=== PATIENT | female | born 1945 | race Caucasian/White ===

== ENCOUNTER 2023-06-10 22:38 | Inpatient (IN) | payer MEDICARE, BC, SELFPAY ==
--- NOTE | 2023-06-10 18:03 | NURSING ---
recieved updated report from Meg LIEBERMAN at [facility] ER. report included troponin now resulted back as elevated as 168 states their normal goes up to 59. also states that pt would require her 3hr liset next troponin draw at 8pm at time of transport vegetable picker and would have to be sent out so wouldn't be resulted before left. Dr. Muniz updated on new findings and states pt will be admitted to PCU and will need state troponin on admission. Senior Care Manager Kirk called and updated. Report as given by Meg called to PCU charge Nurse. PCU charge nurse given ER phone number to call with updated bed assignment.
--- OUTSIDE RECORDS SUMMARY | 2023-06-10 21:34 | XMS RPT_ITS | CCD ---
Author Name Unknown Address [address] [place] [address] Organization [facility] Care Team Providers Care Outside Sales Account Manager Name Role Phone MARIE, KIMO M Unavailable Unavailable MARIE, KIMO M Unavailable Unavailable Asbridge, Nyla Unavailable Unavailable Asbridge, Nyla Unavailable Unavailable No Doctor Assigned, Nodr Unavailable Unavail able MARIE, KIMO M Unavailable Unavailable MARIE, KIMO M Unavailable Unavailable ASHLEY BRANDT Unavailable Unavailable ASHLEY BRANDT Unavailable Unavailable ASHLEY BRANDT Unavailable Unavailable BRANDTASHLEY Unavailable Unavailable MARIE, KIMO M Unavailable Unavailable MARIE, KIMO M Unavailable Unavailable ASHLEY BRANDT Unavailable Unavailable ASHLEY BRANDT Unavailable Unavailable ASHLEY BRANDT Unavailable Unavailable ASHLEY BRANDT Unavailable Unavailable KRANYAK, HEMANTH Unavailable Unavailable KRANYAK, HEMANTH Unavailable Unavailable KRANYAK, HEMANTH Unavailable Unavailable KRANYAK, HEMANTH Unavailable Unavailable MARIE, KIMO M Unavailable Unavailable MARIE, KIMO M Unavailable Unavailable KRANYAK, HEMANTH Unavailable Unavailable MARIE, KIMO M Unavailable Unavailable MARIE, KIMO M Unavailable Unavailable MARIE, KIMO M Unavailable Unavailable MARIE, KIMO M Unavailable Unavailable MARIE, KIMO M Unavailable Unavailable MARIE, KIMO M Unavailable Unavailable MARIE, KIMO M Unavailable Unavailable MARIE, KIMO M Unavailable Unavailable MARIE, KIMO M Unavailable Unavailable MARIE, KIMO M Unavailable Unavailable MARIE, KIMO M Unavailable Unavailable MARIE, KIMO M Unavailable Unavailable MARIE, KIMO M Unavailable Unavailable MARIE, KIMO M Unavailable Unavailable MARIE, KIMO M Unavailable Unavailable GRETCHEN, HAMED Unavailable Unavailable GRETCHEN, HAMED Unavailable Unavailable MARIE, KIMO M Unavailable Unavailable MARIE, KIMO M Unavailable Unavailable MARIE, KIMO M Unavailable Unavailable MARIE, KIMO M Unavailable Unavailable MARIE, KIMO M Unavailable Unavailable MARIE, KIMO M Unavailable Unavailable ASHLEY ISLAS Unavailable Unavailable ASHLEY ISLAS Unavailable Unavailable ASHLEY BRANDT Unavailable Unavailable ASHLEY BRANDT Unavailable Unavailable EDI BANG Attending Unavailab SYSTEM, PROVIDER NOT IN Primary Care Unavaila ble Allergies Allergy Classification Reported Allergen(s) Allergy Type Date of Onset Reaction(s) Facility (1 source) No Known Medication Allergies; Translations: [No Known Medication Allergies] Propensity to adverse reactions to drug (disorder) [facility] Repository Problems Active Problems Problem Classification Problem Date Documented Date Episodic/Chronic Cancer of breast (1 source) Malignant neoplasm of upper-outer quadrant of left female breast; Translations: [Malignant neoplasm of upper-outer quadrant of left female breast] Onset: 12-29-2016 Chronic Cancer of colon (1 source) Malignant neoplasm of ascending colon; Translations: [Malignant neoplasm of ascending colon] Onset: 04-25-2014 Chronic Maintenance chemotherapy; radiotherapy (1 source) Encounter for antineoplastic immunotherapy; Translations: [Encounter for antineoplastic immunotherapy] Onset: 06-07-2017 Chronic Other lower respiratory disease (2 sources) Hypoxemia; Translations: [Hypoxemia] Onset: 06-10-2023 Episodic Pneumonia (except that caused by tuberculosis or sexually transmitted disease) (2 sources) Pneumonia, unspecified organism; Translations: [Pneumonia, unspecified organism] Onset: 06-10-2023 Episodic Unclassified (2 sources) Other specified abnormal findings of blood chemistry; Translations: [Encounter for screening for osteoporosis] Onset: 04-24-2017 Episodic Unclassified (1 source) Pain, unspecified; Translations: [Pain, unspecified] Onset: 09-04-2017 Unclassified (1 source) Unknown / UNK(Unknown) Onset: 07-20-2017 Past or Other Problems Problem Classification Problem Date Documented Da te Episodic/Chronic Unclassified (1 source) Estrogen receptor positive status [ER+]; Translations: [Estrogen receptor positive status (ER+)] Onset: 12-29-2016 Episodic Results Test Name Value Interpretation Reference Range Facil ity Encounters Encounter Date Encounter Type Care Provider Facility Start: 06-10-2023 End: 06-10-2023 Emergency department patient visit EDI LOPEZ BANG [facility] Start: 02-05-2018 End: 02-06-2018 Patient encounter KIMO Bowden [facility] Start: 01-17-2018 End: 01-17-2018 Emergency department patient visit Nyla Meade Facility:[facility] Start: 01-17-2018 Patient encounter Maye [id number] Start: 01-07-2018 End: 01-07-2018 Patient encounter KIMO Bowden [facility] Start: 12-14-2017 End: 12-14-2017 Patient encounter KIMO Bowden [facility] Start: 11-23-2017 Patient encounter KIMO Bowden [facility] Start: 11-06-2017 [facility] Start: 11-02-2017 Patient encounter KIMO Bowden [facility] Start: 10-26-2017 End: 10-26-2017 [facility]: 09-28-2017 Patient encounter ASHLEY Nevarez [facility] Start: 09-24-2017 Patient encounter ASHLEY Nevarez [facility] Start: 09-21-2017 Patient encounter MARVIN Dennise [facility] Start: 09-04-2017 End: 09-05-2017 Evaluation and management of inpatient ASHLEY C [facility] Start: 08-20-2017 End: 09-16-2017 Patient encounter ASHLEY Nevarez [facility] Start: 07-20-2017 End: 08-16-[address] [facility] Start: 06-25-2017 End: 07-19-2017 Patient encounter ASHLEY Nevarez [facility] Start: 06-07-2017 Patient encounter ASHLEY ISLAS [facility] Start: 05-18-2017 End: 06-18-2017 Patient encounter KIMO Bowden [facility] Start: 04-26-2017 End: 05-18-2017 Patient encounter KIMO Bowden [facility] Start: 04-24-2017 Ambulatory [facility]IMO [facility] Start: 03-20-2017 End: 04-18-2017 [facility] 02-22-2017 End: 03-18-2017 Patient encounter ZULEIMA GODINEZ [facility] Start: 02-21-2017 End: 03-18-2017 Patient [address] [facility] Payers Date Payer Category Payer Medicare [id number] 2018 Medicare 2003 Unknown [id number] 1945 Unknown [id number] 1945 Unknown [id number] Medicare [id number] Progress note 11-11-2020 Note Date & Type Note Facility 11-11-2020 Note HNO ID: [id number] Author: Gladis Bar MA Service: ? Author Type: [employer] Farm[employer] Type: Progress Notes Filed: 11/11/2020 11:46 AM Note Text: POPULATION HEALTH NAVIGATION OUTREACH Action/FYI ACO Care Gap 1 Attempted to contact patient on 11/11/2020 Result: left message on patient's voicemail asking patient to return my call - assist an scheduling future annual wellness/follow up hypertension appointment with Ashley Islas MD - inquire if patient has advance directives - assist with MyChart activation Updated Health Maintenance - colonoscopy surveillance recommended 3 years per colonoscopy report not 1 year Contact made with patient or family member? NO Pt identified by name and : NO Outreach Outcome/Action Unable to reach patient: Left message Reason for Outreach Care Gap or Scheduling/Wellness visits Payer: Payor: MEDICARE / Plan: MEDICARE A AND B / Product Type: Medicare / Care Gap Reviewed:: Annual Wellness visit Controlling Blood Pressure Reminder: Reminder note to check Health Maintenance for items below Health Maintenance items due: COVID-19 VACCINE(1) Never done HEPATITIS C SCREENING Never done SHINGRIX VACCINE(1 of 2) Never done ADVANCE DIRECTIVE DISCUSSION Never done DEPRESSION SCREENING due on 04/04/2017 ANNUAL PCP TEAM CHRONIC DISEASE VISIT due on 05/20/2020 BP CONTROLLED (<130/80) due on 05/20/2020 Advanced Directives Completed: Have you ever planned for future healthcare decisions with a power of pipe layer helper, living will, or advance directives? N/A Referrals: N/A Message Sent to Practice: NO Navigation Signature: Gladis Bar MA November 11, 2020 11:43 AM [facility] Progress note 11-10-2020 Note Date & Type Note Facility 11-10-2020 Note HNO ID: [id number] Author: Gladis Bar MA Service: ? 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 NO Pt identified by name and : NO Outreach Outcome/Action Unable to reach patient: Left message Reason for Outreach Care Gap or Scheduling/Wellness visits Payer: Payor: MEDICARE / Plan: MEDICARE A AND B / Product Type: Medicare / Care Gap Reviewed:: Annual Wellness visit Controlling Blood Pressure Colorectal Cancer Screening Reminder: Reminder note to check Health Maintenance for items below Health Maintenance items due: COVID-19 VACCINE(1) Never done HEPATITIS C SCREENING Never done SHINGRIX VACCINE(1 of 2) Never done ADVANCE DIRECTIVE DISCUSSION Never done DEPRESSION SCREENING due on 04/04/2017 COLORECTAL CANCER SCREENING due on 08/05/2019 ANNUAL PCP TEAM CHRONIC DISEASE VISIT due on 05/20/2020 BP CONTROLLED (<130/80) due on 05/20/2020 Advanced Directives Completed: Have you ever planned for future healthcare decisions with a power of pipe layer helper, living will, or advance directives? N/A Referrals: N/A Message Sent to Practice: NO Navigation Signature: Gladis Bar MA November 10, 2020 12:47 PM [facility] Clinical Note 11-10-2020 Note Date & Type Note Facility 11-10-2020 Note Patient Outreach (AM BC) TRE ROJAS ([id number]) 1945 F Date Time Provider Department 11/10/20 GLADIS BAR During your visit today, we recorded the following information about you: Gladis Bar MA 11/11/2020 11:46 AM Signed POPULATION HEALTH NAVIGATION OUTREACH Action/FYI ACO Care Gap 1 Attempted to contact patient on 11/10/2020 Result: left message with spouse asking patient to return my call - assist an scheduling future annual wellness/follow up hypertension appointment with Ashley Islas MD - inquire if patient has advance directives - assist with MyChart activation Updated Health Maintenance - colonoscopy surveillance recommended 3 years per colonoscopy report not 1 year Contact made with patient or family member? NO Pt identified by name and : NO Outreach Outcome/Action Unable to reach patient: Left message Reason for Outreach Care Gap or Scheduling/Wellness visits Payer: Payor: MEDICARE / Plan: MEDICARE A AND B / Product Type: Medicare / Care Gap Reviewed:: Annual Wellness visit Controlling Blood Pressure Colorectal Cancer Screening Reminder: Reminder note to check Health Maintenance for items below Health Maintenance items due: COVID-19 VACCINE(1) Never done HEPATITIS C SCREENING Never done SHINGRIX VACCINE(1 of 2) Never done ADVANCE DIRECTIVE DISCUSSION Never done DEPRESSION SCREENING due on 04/04/2017 COLORECTAL CANCER SCREENING due on 08/05/2019 ANNUAL PCP TEAM CHRONIC DISEASE VISIT due on 05/20/2020 BP CONTROLLED (<130/80) due on 05/20/2020 Advanced Directives Completed: Have you ever planned for future healthcare decisions with a power of pipe layer helper, living will, or advance directives? N/A Referrals: N/A Message Sent to Practice: NO Navigation Signature: Gladis Bar MA November 10, 2020 12:47 PM Gladis Bar MA 11/11/2020 11:46 AM Signed POPULATION HEALTH NAVIGATION OUTREACH Action/FYI ACO Care Gap 1 Attempted to contact patient on 11/11/2020 Result: left message on patient's voicemail asking patient to return my call - assist an scheduling future annual wellness/follow up hypertension appointment with Ashley Islas MD - inquire if patient has advance directives - assist with MyChart activation Updated Health Maintenance - colonoscopy surveillance recommended 3 years per colonoscopy report not 1 year Contact made with patient or family member? NO Pt identified by name and : NO Outreach Outcome/Action Unable to reach patient: Left message Reason for Outreach Care Gap or Scheduling/Wellness visits Payer: Payor: MEDICARE / Plan: MEDICARE A AND B / Product Type: Medicare / Care Gap Reviewed:: Annual Wellness visit Controlling Blood Pressure Reminder: Reminder note to check Health Maintenance for items below Health Maintenance items due: COVID-19 VACCINE(1) Never done HEPATITIS C SCREENING Never done SHINGRIX VACCINE(1 of 2) Never done ADVANCE DIRECTIVE DISCUSSION Never done DEPRESSION SCREENING due on 04/04/2017 ANNUAL PCP TEAM CHRONIC DISEASE VISIT due on 05/20/2020 BP CONTROLLED (<130/80) due on 05/20/2020 Advanced Directives Completed: Have you ever planned for future healthcare decisions with a power of pipe layer helper, living will, or advance directives? N/A Referrals: N/A Message Sent to Practice: NO Navigation Signature: Gladis Bar MA November 11, 2020 11:43 AM Allergies As of Date: 11/10/2020 (No Known Allergies) Date Reviewed: 03/16/2020 Reviewed by: Gladis Betancourt Ma - Fully Assessed Reason for Visit: Population Health Navigation Outreach [3910] Cmt: ACO Care Gap 1 Prescriptions as of 11/10/2020 Sig: AMLODIPINE 5 MG TABLET Take 1 tablet by mouth once d* KETOROLAC 0.5 % EYE DROPS Use 1 Drop in both eyes four * PREDNISOLONE ACETATE 1 % EYE * Use 1 Drop in the left eye fo* Patient not taking: Reported on 03/14/2019 PREDNISOLONE ACETATE 1 % EYE * Use 1 Drop in the right eye f* Patient not taking: Reported on 03/14/2019 ASPIRIN 81 MG TABLET,DELAYED * Take 81 mg by mouth once lin[place]* ASCORBIC ACID (VITAMIN C) ORA* Take by mouth. VITAMIN D3 ORAL Take by mouth. ACETAMINOPHEN 500 MG TABLET Take 1-2 tablets by mouth daily* Patient not taking: Reported on 11/22/2018 Problem List As Of Date 11/10/2020 Noted Resolved ACTINIC KERATOSIS [L57.0] 07/15/2004 SEBORRHEIC KERATOSIS INFLAMED [L82.0] 07/15/2004 Hypertrophic and atrophic condition of skin [L9*05/15/2006 Colon cancer, ascending (HCC) [C18.2] 04/24/2014 Primary colon cancer (HCC) [C18.9] 06/15/2015 Essential hypertension [I10] 10/06/2016 Morbid obesity (HCC) [E66.01] 10/06/2016 Mammogram abnormal [R92.8] 12/22/2016 Abnormal ultrasound of breast [R92.8] 12/22/2016 Lump or mass in breast [N63.0] 12/22/2016 05/20/2019 Lymphadenopathy [R59.1] 12/22/2016 05/20/2019 Malignant neoplasm of upper-outer quadrant of (more content not included)... [facility] Summary Purpose Family History No Family History Records FoundNo Family History Records FoundNo Family History Records FoundNo Family History Records FoundNo Family History Records FoundNo Family History Records Found Advance Directives No Advanced Directives Records FoundNo Advanced Directives Records FoundNo Advanced Directives Records FoundNo Advanced Directives Records FoundNo Advanced Directives Records FoundNo Advanced Directives Records Found Additional Source Comments INFORMATION SOURCE (unrecogn ized section and content) DATE CREATED AUTHOR AUTHOR'S ORGANIZ ATION 01/28/2018 [facility] DATE CREATED AUTHOR AUTHOR'S ORGANIZ ATION 02/11/2018 [facility] DATE CREATED AUTHOR AUTHOR'S ORGANIZ ATION 05/13/2018 [facility] DATE CREATED AUTHOR AUTHOR'S ORGANIZ ATION 08/13/2021 [facility] DATE CREATED AUTHOR AUTHOR'S ORGANIZ ATION 06/10/2023 [facility] FOR RECORDS PERTAINING TO PATIENTS WHO ARE OR HAVE BEEN ENROLLED IN A CHEMICAL DEPENDENCY/SUBSTANCEABUSE PROGRAM, SOME INFORMATION MAY BE OMITTED. This clinical summary was aggregated from multiple sources. Caution should be exercised in using it in the provision of clinical care. This summary normalizes information from multiple sources, and as a consequence, information in this document may materially change the coding, format and clinical context of patient data. In addition, data may be omitted in some cases. CLINICAL DECISIONS SHOULD BE BASED ON THE PRIMARY CLINICAL RECORDS. [facility] [employer] [facility]. provides no warranty or guarantee of the accuracy or completeness of information in this document.
[2023-06-10 21:52] VITALS: BMI 32.5
[2023-06-10 22:26] VITALS: BP 140/82; PULSE 97; RESP 18; TEMP 36.8; O2SAT 98
[2023-06-10 22:27] VITALS: BP 140/82; PULSE 97; RESP 18; TEMP 36.8; O2SAT 98
--- NOTE | 2023-06-10 22:34 | HP.PCM.HOS_ITS ---
[facility] - General General Date of Admission: 06/10/23 Date of Service: 06/10/23 Chief Complaint: Shortness of breath and cough with Severe LUE Swelling HPI Narrative TRE ROJAS, is a 78 F with a past medical history of obesity; with BMI of 3 2.5 this admission, history of breast cancer; s/p left lumpectomy, history of colon cancer; s/p resection, and a history of deliberately avoiding medical attention for years and osteoarthritis transferred from [place] [facility] for cough and shortness of breath, cough and severe LUE swelling. The patient reports her symptoms began approximately 8 weeks prior to admission with a gradual onset of dyspnea on exertion and occasional cough that became productive of yellow-green sputum along with generalized weakness. Her family, particularly her sons, or deeply concerned about her health status but she refused to be evaluated at that time as she takes no pharmaceutical medications only vitamins and minerals. Her symptoms continue to progress with patient noted to have an oxygen saturation of approximately 88% at [place] [facility] with x-ray evidence of a left lower lobe infiltrate consistent with suspected community-acquired pneumonia. COVID-19 testing at the previous facility was n egative with a BNP of 88.9 pg/mL and a lactate of 1.9 mmol/L and she received Levaquin 750 mg IV once plus a breathing treatment according to the transfer records. After she arrived here at this hospital she was noted to have massive 4+ swelling of her left upper extremity with a D-dimer of 10.97 consistent with a DVT until proven otherwise with a review of her records not revealing any treatment for this issue and she personally denies a history of lymphedema and she states they did not take her lymph nodes when she was treated for breast cancer. She was also incidentally noted to have an elevated troponin of 168 pg/mL present on admission consistent with a suspected non-STEMI type II though she did not complain of chest pain, chest pressure or palpitations. She was then accepted for transfer to [facility] for further supportive care and ongoing treatment. She denies associated fever, chills, nausea vomiting or diaphoresis. She was then admitted to the PCU for ongoing care for stay that is expected to be greater than 48 hours. [facility] Home Medications cholecalciferol (vitamin D3) 125 mcg (5,000 unit) tablet (Vitamin D3) 5,000 unit PO DAILY 06/10/23 [History Last Taken Unknown] Allergy/AdvReac Type Severity Reaction Status Date / Time No Known Allergies Allergy Verified 06/10/23 22:02 Social History Smoking Status: Never smoker ROS ROS Narrative Review of systems: Constitutional: Patient is to fever but denies chills.. Eyes: Patient denies visual changes or discharge from eyes. ENT: Patient denies ear pain, runny nose or sore throat. Cardiovascular: Patient denies chest pain or palpitations. Respiratory: Patient admits to shortness of breath and cough. Abdomen: Patient denies nausea, vomiting or abdominal pain. Genitourinary: Patient denies hematuria, dysuria or urinary frequency. Neurology: Patient denies headache, dizziness or focal neurologic deficits. Musculoskeletal: Patient admits to massive swelling in her left arm with swellin g in her hand so severe she cannot get off her wedding ring. Hematologic: Patient denies easy bleeding or easy bruisability. Allergic: Patient denies lip swelling, tongue swelling or urticaria. Skin: Patient denies rash or skin discoloration. 14 point review of systems otherwise negative save for positives noted above in HPI. Vital Signs Vital Signs Vital Signs: 06/10/23 22:26 Temperature 98.3 F Temperature Source Oral Pulse Rate 97 Respiratory Rate 18 Blood Pressure 140/82 H Blood Pressure Mean 101 Blood Pressure Source Monitor Blood Pressure Position Semi-Fowlers Blood Pressure Location Right Arm Pulse Ox 98 Oxygen Delivery Method Nasal Cannula Oxygen Flow Rate (L/min) 4 Weight Weight: 213 lb 13.574 oz Body Mass Index (BMI) 32.5 Physical Exam Const alert, oriented x3, no apparent distress and average body habitus General Appearance: cooperative HEENT normocephalic, head/scalp atraumatic, hearing grossly normal bilaterally and moist oral mucous membranes Eyes PERRL and EOMs intact bilaterally Neck no lymphadenopathy and supple Resp Resp Narrative: Decreased breath sounds over LLL. Cardio regular rate and regular rhythm GI normal to inspection, nondistended, normoactive bowel sounds, soft to palpation, non-tender and non-distended Extremity Extremity Narrative: Severe 4+ LUE swelling of the entire arm with her digits still swollen that she cannot get off her wedding ring. Patient has no redness, pain or discoloration of her lower extremities. Skin Skin Narrative: Patient has no evidence of rash at this time. Neuro oriented x3, CN's II-XII intact bilaterally, moves all extremities and no focal motor deficits Sensorium / Orientation: awake, alert, oriented to person, oriented to place and oriented to time Speech: speech normal Motor Exam: strength 5/5 throughout Psych affect normal Results Medical Records Data Attestation: I reviewed the patient's medical records Lab / Micro Data Attestation: I reviewed the patient's lab results. Lab results narrative: [facility] Imaging Services [address] [place] [address] CTA Chest W/WO Contrast MR#: [id number] Acct: [id number] Name: TRE ROJAS Rep #: [id number] : 1945 F 78 From: Mike Hand MD PCP: Care Physician,No Primary Status: ADM IN Study: CTA Chest W/WO Contrast Date of Exam: 06/11/23 Exam# [id number] Ordering Dr: Guevara Adamson DO EXAM: CT ANGIOGRAPHY CHEST WITHOUT AND WITH INTRAVENOUS CONTRAST CLINICAL INDICATION: rule out PE TECHNIQUE: Helically acquired angiography images were obtained of the chest as per pulmonary angiogram protocol without and with intravenous contrast. This CT exam was performed using one or more of the following dose reduction techniques: automated exposure control, adjustment of the mA and/or kV according to patient size, and/or use of iterative reconstruction technique. MIP reconstructed images were created and reviewed. CONTRAST: IV 100mL Isovue-370 RADIATION DOSE: Total DLP: 488.05 mGy-cm. COMPARISON: No relevant prior studies available. FINDINGS: PULMONARY ARTERIES: Unremarkable. Normal in caliber. No pulmonary embolism. AORTA: Unremarkable. Normal in caliber. No evidence of dissection. GREAT VESSELS OF AORTIC ARCH: Unremarkable. Normal in caliber. No evidence of dissection. INFRAHYOID NECK: 8 x 3 x 11 mm circumscribed sessile polypoid density along the right posterolateral wall of the trachea at the level of the thoracic inlet. LUNGS AND PLEURAL SPACES: There is a large left pleural effusion with compressive atelectasis within the left lower lobe. Focal wedge-shaped area of consolidation noted within the medial aspect of the lingula, due to atelectasis and probable pneumonia. Mainstem bronchi are widely patent. Atelectasis or scarring noted within the left upper lobe abutting the mediastinum. Minimal right pleural effusion with right basilar atelectasis. No mass. No pulmonary interstitial thickening. Peribronchial cuffing noted on the left indicating bronchial wall inflammation. HEART: Minimal coronary artery calcification is present. Minimal pericardial effusion. MEDIASTINUM: No hilar or mediastinal adenopathy. THYROID: Enlarged right thyroid lobe contains multiple nodules, including a 12 mm lobulated ring-enhancing nodule with a hypodense center; this nodule requires no follow-up. BONES/JOINTS: Lower cervical degenerative disc disease. Extensive thoracolumbar degenerative changes. No acute fracture is identified. No suspicious lytic or blastic abnormality. Asymmetric fat stranding noted within the left supraclavicular fossa, with asymmetric enlargement of the muscles of the left lower neck and overlying skin thickening due to edema versus scarring. No focal ring-enhancing fluid collection is seen in this area. INTRAPERITONEAL SPACE: Liver demonstrates fatty infiltration. Hepatic parenchyma is inhomogeneous, felt to be artifactual. Visualized spleen is unremarkable. Visualized pancreatic tail is atrophic. No adrenal mass is noted. No pneumoperitoneum is seen. CT/CTA Chest W/WO Contrast IMPRESSION: Negative for PE. No thoracic aortic dissection. Large left pleural effusion with compressive atelectasis in the left lower lobe. Atelectasis and probable pneumonia within the medial aspect of the left upper lobe. Electronically Signed: Mike Hand MD at 4:41 EST , CC: Dr. Guevara Adamson, DO; No Primary Care Physician ~ Rap Artist: Signed 06/11/23 01:38 06/11/23 01:38 Assessment & Plan Assessment/Plan (1) Non-STEMI (non-ST elevated myocardial infarction): (2) Pneumonia: QUALIFIERS: Laterality: left Lung location: lower lobe of lung Pneumonia type: due to unspecified organism Qualified Code(s): J18.9 - Pneumonia, unspecified organism (3) Left arm swelling: PLAN: Plan 1. LLL Pneumonia with Large Left Pleural Effusion on CT with Acute Hypoxic Respiratory Insufficiency - Admit to PCU. Start broad-spectrum antibiotics and await culture and sensitivity data. Give Mucinex to help thin and mobilize secretions. Give Tylenol prn for mild to moderate level 1-5 out of 10 pain or fever. Give morphine IV as needed for severe level 6-10 out of 10 pain. PT/INR pending. Finally, we will consult the beauty culturist apprentice addiction professional to this patient on- rounds in the AM for further recommendations regarding possible thoracentesis. 2. Severe LUE Swelling with Critical d-dimer of 10.97 consistent with suspected DVT until proven otherwise complicating #1 - Start full-dose Lovenox and await left upper extremity Doppler ultrasound in the a.m. to confirm suspicion. Finally, for the sake of completeness we will check lower extremity Doppler to confirm no DVT. CTA of chest negative for PE. 3. Elevated troponin of 148 pg/mL present on admission likely due to acute strain/non-STEMI type II arising from #1 & #2 - Give aspirin, Plavix, statin and full dose Lovenox. Serialize troponin. BNP pending. Check echocardiogram to evaluate left ventricular ejection fraction. Finally, we will consult the cargo bracer on-call to see this patient on rounds in the a.m. for further recommendations regarding left heart cath with help appreciated in advance. 4. Obesity; with BMI of 32.5 this admission - Weight loss will be recommended. Check TSH. 5. History of breast cancer; s/p Left lumpectomy - Apparently stable. 6. History of colon cancer; s/p resection - Noted. 7. DVT prophylaxis - Patient on full-dose Lovenox for #2. Total time: Proximately 55 minutes. Charges/Coding Visit Charges Inpatient E&M: 23191 Init Hosp L2
--- NOTE | 2023-06-10 22:46 | ECHOCS_ITS ---
Reason For Study: S/P [place] Procedure This was a 2D Doppler, Color Flow transthoracic echocardiogram. The study was technically difficult. D/T BODY HABITUS. Contrast injection was performed. Exam performed portable in patient room. Left Ventricle Normal LV size. Mild concentric left ventricular hypertrophy. Left ventricular systolic function is normal. The estimated ejection fraction is 60 %. Stage 1 diastolic dysfunction. Right Ventricle Normal RV size. Normal systolic function. Atria The left and right atria are normal. Mitral Valve Mild mitral annular calcification. Trivial mitral valve insufficiency. Tricuspid Valve Normal tricuspid valve. Trivial tricuspid valve insufficiency. Right ventricular systolic pressure estimated to be 44 mmHg. Aortic Valve Trisinus/trileaflet aortic valve. Mild focal aortic valve calcification. Aortic sclerosis, no stenosis. Pulmonic Valve The pulmonic valve is not well visualized. Great Vessels Normal aortic root. Pericardium/Pleural No pericardial effusion. Medication Diluted definity 2.5ml given slow IV push to enhance endocardial definition. MMode/2D Measurements & Calculations LVIDd: 4.3 cm IVSd: 1.1 cm Ao root diam: 2.7 cm LVIDs: 3.2 cm LVPWd: 1.2 cm RVDd: 3.9 cm FS: 26.1 % LAV(MOD-bp): 44.2 ml LVAd ap4: 18.3 cm2 LVAd ap2: 13.2 cm2 LAV(MOD-bp) Indexed: 21.0 ml/m2 LVLd ap4: 7.1 cm LVLd ap2: 6.2 cm LAV(MOD-sp2): 42.9 ml EDV(MOD-sp4): 39.1 ml EDV(MOD-sp2): 23.4 ml LAV(MOD-sp4): 41.9 ml EDV(sp4-el): 40.2 ml EDV(sp2-el): 23.9 ml LVAs ap4: 11.1 cm2 LVAs ap2: 8.0 cm2 LVLs ap4: 6.0 cm LVLs ap2: 4.9 cm ESV(MOD-sp4): 17.3 ml ESV(MOD-sp2): 10.5 ml ESV(sp4-el): 17.4 ml ESV(sp2-el): 10.9 ml EF(MOD-sp4): 55.8 % EF(MOD-sp2): 55.0 % EF(sp4-el): 56.7 % SV(MOD-sp4): 21.8 ml SV(MOD-sp2): 12.9 ml SV(sp4-el): 22.8 ml LA A4 area: 17.0 cm2 LA dimension(2D): 3.8 cm TAPSE: 2.7 cm Time Measurements MV dec time: 0.29 sec Doppler Measurements & Calculations MV E max augie: 77.5 cm/sec Lat Peak E' Augie: 6.7 cm/sec Med Peak E' Augie: 7.7 cm/sec MV A max augie: 134.8 cm/sec E/E' lat: 11.5 E/E' med: 10.0 MV E/A: 0.57 Ao V2 max: 152.1 cm/sec LV V1 max: 111.2 cm/sec PA V2 max: 90.7 cm/sec Ao max P.3 mmHg LV V1 max P.9 mmHg Ao V2 mean: 106.8 cm/sec LV V1 mean P.0 mmHg Ao mean P.9 mmHg LV V1 mean: 83.9 cm/sec Ao V2 VTI: 26.1 cm LV V1 VTI: 19.9 cm AV (velocity ratio): 0.76 TR max augie: 320.2 cm/sec TR max P.0 mmHg ECHO/Echo Complete W/ Contrast Interpretation Summary The estimated ejection fraction is 60 %. Stage 1 diastolic dysfunction. Mild concentric left ventricular hypertrophy. Multiple echolucent lesions were noted in the liver suspicious for metastasis Recommendation; To consider further evaluation with CT abdomen. No previous echo for comparison The study was technically difficult. Contrast injection was performed. Ordering Physician: Guevara Adamson Referring Physician: JUAQUIN PCP Performed By: Nereida Mcgee RDCS, RVT
[2023-06-10 22:57] VITALS: O2SAT 96
--- NOTE | 2023-06-10 23:10 | EKG12_ITS ---
Test Reason : NSTEMI Blood Pressure : / mmHG Vent. Rate : 094 BPM Atrial Rate : 094 BPM P-R Int : 164 ms QRS Dur : 140 ms QT Int : 386 ms P-R-T Axes : 044 -13 125 degrees QTc Int : 482 ms Normal sinus rhythm Left bundle branch block Abnormal ECG No previous ECGs available Confirmed by SKIP ORTEGA, ALEX ([id number]), metropolitan editor SUJEY HOLLOWAY ([id number]) on 06/19/2023 10:19:05 AM Referred By: DR Simental Confirmed By:ALEX VALDIVIA MD
--- NOTE | 2023-06-10 23:35 | VDUE_ITS ---
Reason For Study: arm swelling Right Proximal Left Proximal Right jugular vein is spontaneous, widely Left jugular vein is spontaneous, widely patent, phasic, with no intraluminal patent, phasic, with no intraluminal echogenicity noted. echogenicity noted. Right subclavian vein is spontaneous, widely Left subclavian vein is spontaneous, widely patent, phasic, with no intraluminal patent, phasic, with no intraluminal echogenicity noted. echogenicity noted. Right Lower Arm Left Arm Right radial vein is compressible. Left axillary vein is spontaneous, patent, Right ulnar vein is compressible. phasic, competent, compressible and Right Arm demonstrates augmentation. Right axillary vein is spontaneous, patent, Left brachial vein is compressible. phasic, competent, compressible and Left cephalic vein is compressible. demonstrates augmentation. Left basilic vein is compressible. Right brachial vein is compressible. Left Lower Arm Right cephalic vein is compressible. Left radial vein is compressible. Right basilic vein is compressible. Left ulnar vein is compressible. Prelim to [facility]. Limited views of veins on the LUE due to severe swelling. VL/Venous Duplex US - Ron Extrem Interpretation Summary Deep veins of the upper extremities are bilaterally patent and compressible seg mentally. There is no evidence of deep vein thrombosis on either side. The superficial veins of the u pper extremities, the basilic and cephalic veins, are patent and compressible. There is no evidence o f upper extremity superficial thrombophlebitis on either side involving the veins imaged. Ordering Physician: Guevara Adamson Performed By: Evan Schrader RVT ???
[2023-06-11 00:31] LABS: BNP,B-Type NATRIURETIC PEPTIDE 30.4 pg/mL (0-100)
[2023-06-11 00:36] LABS: Troponin-I HS 153 pg/mL (3.0-54.0)
[2023-06-11] MEDS: Aspirin 81 MG TAB.CHEW PO ×2 (00:41→11:10)
[2023-06-11] MEDS: Clopidogrel Bisulfate 75 MG Tablet PO (00:41)
[2023-06-11 00:55] LABS: D-Dimer Quantitative (DVT/PE) 10.97 FEU/ug/m (0.27-0.49)
[2023-06-11] MEDS: Enoxaparin 100 MG/ML Syringe SC ×3 (00:59→21:46)
[2023-06-11 01:44] LABS: Cholesterol 220 mg/dL (200); High Density Lipoprotein 28 mg/dL; Thyroid Stim Hormone (TSH) 2.85 uIU/mL (0.358-3.74); Triglycerides 152 mg/dL; Very Low Density Lipoprotein 30 mg/dL (5-40)
[2023-06-11 02:15] LABS: Troponin-I HS 148 pg/mL (3.0-54.0)
[2023-06-11 02:42] LABS: ALB/GLOB Ratio 0.5 RATIO (0.9-2.4); AST(SGOT) 365 U/L (15-37); Alanine Aminotransfer ALT/SGPT 98 U/L (13-56); Albumin, Serum 1.9 g/dL (3.2-5.0); Alkaline Phosphatase 786 U/L (45-117); Anion Gap 8 (5-15); BUN 24 mg/dL (7-18); BUN/Creat Ratio 22.4 RATIO (10-20); Calcium,Total 9.6 mg/dL (8.5-10.1); Chloride 108 mmol/L (98-107); Creatinine, Serum 1.07 mg/dL (0.55-1.02); EST Glomerular Filtration Rate 52 mL/min (>60); Est Glom Filt Rate - Afr Amer 63 mL/min (>60); Globulin 3.8 g/dL (2.2-4.2); Glucose 69 mg/dL (74-106); Potassium 3.5 mmol/L (3.5-5.1); Protein, Total 5.7 g/dL (6.4-8.2); Sodium Level 142 mmol/L (136-145)
[2023-06-11 02:43] LABS: Absolute Lymphocyte Count 1.25 X10^3/uL (0.83-4.51); Absolute Neutrophil Count 7.3 X10^3/uL (2.0-7.7); Basophil# 0.09 X10^3/uL; Basophil% 0.9 % (0-1); Eosinophil# 0.04 X10^3/uL; Eosinophils% 0.4 % (0-5); Hematocrit 36.6 % (37-47); Hemoglobin 10.9 g/dL (12.0-15.0); Lymphocyte # 1.25 X10^3/ul (0.83-4.51); Lymphocyte % 12.2 % (19-41); Mean Corp Hgb Conc 29.8 g/dL (32-36); Mean Corpuscular Hgb 27.3 pg (27.0-32.0); Mean Corpuscular Volume 91.7 fL (81-99); Mean Platelet Vol. 10.1 fl (6.2-12.0); Monocyte% 12.7 % (0-10); NRBC Flagged by Analyzer 0.3 % (0-5); Neutrophil # 7.34 X10^3/uL (2.7-7.7); Neutrophil % 71.9 % (47-70); POSITIVE MORPHOLOGY YES; Platelet Count 213 K/mm3 (150-450); RBC Distribution Width CV 21.2 % (11.6-14.6); Red Blood Count 3.99 M/mm3 (4.2-5.4); White Blood Count 10.2 K/mm3 (4.4-11.0)
[2023-06-11 02:47] LABS: Differential Indicated SCAN CRITERIA MET
--- NOTE | 2023-06-11 03:25 | CT_ITS ---
EXAM: CT ANGIOGRAPHY CHEST WITHOUT AND WITH INTRAVENOUS CONTRAST CLINICAL INDICATION: rule out PE TECHNIQUE: Helically acquired angiography images were obtained of the chest as per pulmonary angiogram protocol without and with intravenous contrast. This CT exam was performed using one or more of the following dose reduction techniques: automated exposure control, adjustment of the mA and/or kV according to patient size, and/or use of iterative reconstruction technique. MIP reconstructed images were created and reviewed. CONTRAST: IV 100mL Isovue-370 RADIATION DOSE: Total DLP: 488.05 mGy-cm. COMPARISON: No relevant prior studies available. FINDINGS: PULMONARY ARTERIES: Unremarkable. Normal in caliber. No pulmonary embolism. AORTA: Unremarkable. Normal in caliber. No evidence of dissection. GREAT VESSELS OF AORTIC ARCH: Unremarkable. Normal in caliber. No evidence of dissection. INFRAHYOID NECK: 8 x 3 x 11 mm circumscribed sessile polypoid density along the right posterolateral wall of the trachea at the level of the thoracic inlet. LUNGS AND PLEURAL SPACES: There is a large left pleural effusion with compressive atelectasis within the left lower lobe. Focal wedge-shaped area of consolidation noted within the medial aspect of the lingula, due to atelectasis and probable pneumonia. Mainstem bronchi are widely patent. Atelectasis or scarring noted within the left upper lobe abutting the mediastinum. Minimal right pleural effusion with right basilar atelectasis. No mass. No pulmonary interstitial thickening. Peribronchial cuffing noted on the left indicating bronchial wall inflammation. HEART: Minimal coronary artery calcification is present. Minimal pericardial effusion. MEDIASTINUM: No hilar or mediastinal adenopathy. THYROID: Enlarged right thyroid lobe contains multiple nodules, including a 12 mm lobulated ring-enhancing nodule with a hypodense center; this nodule requires no follow-up. BONES/JOINTS: Lower cervical degenerative disc disease. Extensive thoracolumbar degenerative changes. No acute fracture is identified. No suspicious lytic or blastic abnormality. Asymmetric fat stranding noted within the left supraclavicular fossa, with asymmetric enlargement of the muscles of the left lower neck and overlying skin thickening due to edema versus scarring. No focal ring-enhancing fluid collection is seen in this area. INTRAPERITONEAL SPACE: Liver demonstrates fatty infiltration. Hepatic parenchyma is inhomogeneous, felt to be artifactual. Visualized spleen is unremarkable. Visualized pancreatic tail is atrophic. No adrenal mass is noted. No pneumoperitoneum is seen. CT/CTA Chest W/WO Contrast IMPRESSION: Negative for PE. No thoracic aortic dissection. Large left pleural effusion with compressive atelectasis in the left lower lobe. Atelectasis and probable pneumonia within the medial aspect of the left upper lobe. Electronically Signed: Mike Hand MD at 4:41 EST ,
--- NOTE | 2023-06-11 05:07 | VDLE_ITS ---
Reason For Study: elevated D-Dimer RIGHT LEFT GSV is normal. GSV is normal. CFV is compressible, spontaneous, phasic, CFV is compressible, spontaneous, phasic, competent and demonstrates normal competent, and demonstrates normal augmentation. augmentation. FV is compressible, spontaneous, phasic, FV is compressible, spontaneous, phasic, competent and demonstrates normal competent and demonstrates normal augmentation. augmentation. POP V is compressible, spontaneous, phasic, POP V is compressible, spontaneous, phasic, competent and demonstrates normal competent and demonstrates normal augmentation. augmentation. T/P Trunk is compressible. T/P Trunk is compressible. PTV is compressible. PTV is compressible. RT PerV is compressible. LT PerV is compressible. Procedure This is a venous duplex using B-mode, color flow and spectral Doppler. Exam performed portable in patient room. The exam was diagnostic. A preliminary report was called and/or faxed to [facility] LIEBERMAN. VL/Venous Duplex US - Ron Extrem Interpretation Summary Deep veins of the lower extremities are bilaterally patent and compressible seg mentally. There is no evidence of deep vein thrombosis on either side. Valvular competence appears in tact within the proximal deep venous systems bilaterally. The great saphenous veins appear bila terally patent and compressible segmentally. Ordering Physician: Guevara Adamson Performed By: Evan Schrader RVT
[2023-06-11 05:30] VITALS: BP 139/62; PULSE 72; RESP 18; TEMP 37.1; O2SAT 96
[2023-06-11] MEDS: Miconazole Nitrate 43 GM Bottle 1 APPLIC TOPICAL ×3 (05:56→21:43)
[2023-06-11 06:13] LABS: Anisocytosis 2+
[2023-06-11 06:33] LABS: International Normalized Ratio 1.2; Prothrombin Time (Protime)PT. 15.2 SECONDS (11.7-14.9)
[2023-06-11 07:00] LABS: Troponin-I HS 146 pg/mL (3.0-54.0)
[2023-06-11 07:32] VITALS: O2SAT 95
[2023-06-11 08:56] VITALS: BP 130/66; PULSE 92; RESP 16; TEMP 36.5; O2SAT 97
[2023-06-11] MEDS: Ascorbic Acid 500 MG Tablet 1000 MG PO (09:27)
[2023-06-11] MEDS: Furosemide 40 MG/4 ML Vial IV (09:27)
[2023-06-11] MEDS: Cholecalciferol (Vit D3) 125 MCG CAPSULE (5,000 UNITS) PO (09:29)
[2023-06-11] MEDS: Zinc Sulfate 50 mg zinc (220 mg) ORAL capsule PO (09:29)
[2023-06-11] MEDS: Ceftriaxone 1 GM/50 mL Premix Q24 IV (09:29)
[2023-06-11] MEDS: Azithromycin 500 MG in Dextrose 5%-Water (250mL Bag) 250 ML 250 MG IV (11:10)
--- NOTE | 2023-06-11 12:51 | PCM.PN.HOSP ---
Subjective Subjective QuiringDoing well, feels little bit better today. Oxygen at 2 L nasal cannula Objective Data Objective Data Vital Signs: Vital Signs Temp Pulse Resp BP Pulse Ox O2 Del Method O2 Flow Rate 97.7 F L 92 16 130/66 H 97 Nasal Cannula 1 06/11/23 08:56 06/11/23 08:56 06/11/23 08:56 06/11/23 08:56 06/11/23 08:56 06/11/23 08:56 06/11/23 08:56 Oxygen Flow Rate (L/min) 1 Oxygen Delivery Method Nasal Cannula Weight: 213 lb 13.574 oz Body Mass Index (BMI) 32.5 Intake & Output: Intake and Output for Last 24 Hours 06/10/23 06/11/23 06/12/23 03:59 03:59 03:59 Intake Total 605 / 605 Output Total 400 / 400 Balance 205 / 205 Lab / Micro Data 06/11/23 01:38 06/11/23 01:38 Labs: Laboratory Results - last 24 hr 06/10/23 23:55: PT 15.2 H, INR 1.2, D-Dimer Quant (PE/DVT) 10.97 H*, Troponin I High Sens 153 H*, B-Natriuretic Peptide 30.4, Triglycerides 152, Cholesterol 220 H, LDL Cholesterol 162 H, VLDL Cholesterol 30, HDL Cholesterol 28 L, TSH 2.85 06/11/23 01:38: WBC 10.2, RBC 3.99 L, Hgb 10.9 L, Hct 36.6 L, MCV 91.7, MCH 27.3, MCHC 29.8 L, RDW Std Deviation 69.0 H, RDW Coeff of Jennifer 21.2 H, Plt Count 213, MPV 10.1, Immature Gran % (Auto) 1.900 H, Neut % (Auto) 71.9 H, Lymph % (Auto) 12.2 L, [place] % (Auto) 12.7 H, Eos % (Auto) 0.4, Baso % (Auto) 0.9, Absolute Neuts (auto) 7.3, Absolute Lymphs (auto) 1.25, Nucleated RBC % 0.3, Anisocytosis 2+, Sodium 142, Potassium 3.5, Chloride 108 H, Carbon Dioxide 26.0, Anion Gap 8, BUN 24 H, Creatinine 1.07 H, Estim Creat Clear Calc 42.30, Est GFR (MDRD) Af Amer 63, Est GFR (MDRD) Non-Af 52 L, BUN/Creatinine Ratio 22.4 H, Glucose 69 L, Calcium 9.6, Total Bilirubin 2.40 H, AST 365 H, ALT 98 H, Alkaline Phosphatase 786 H, Troponin I High Sens 148 H*, Total Protein 5.7 L, Albumin 1.9 L, Globulin 3.8, Albumin/Globulin Ratio 0.5 L 06/11/23 05:20: Troponin I High Sens 146 H* Micro: Microbiology 06/10/23 23:40 Mucosa - Nasopharyngeal Respiratory Panel (PCR) - Final 06/11/23 03:10 Urine, Clean Catch Legionella Antigen - Final 06/11/23 03:10 Urine, Clean Catch Streptococcus pneumoniae Antigen (M - Final 06/10/23 23:40 Mucosa - Nasopharyngeal Influenza Types A,B Direct FA (HOMERO) - Final Radiography Diagnostic Testing: Radiology Impression Chest CTA 06/11/23 03:25 IMPRESSION: Negative for PE. No thoracic aortic dissection. Large left pleural effusion with compressive atelectasis in the left lower lobe. Atelectasis and probable pneumonia within the medial aspect of the left upper lobe. Electronically Signed: Mike Hand MD at 4:41 EST , Physical Exam Narrative General: Alert, Oriented x3, Cooperative, No apparent distress HEENT: Atraumatic, PERRLA, EOMI, Normocephalic Oral: Moist Mucosa Neck: Supple, No JVD Lungs: Diminished on left greater than right, Normal air movement, No rhonchi, No wheeze, No rales Cardiovascular: Regular rate, Regular Rhythm, Normal S1, Normal S2, No murmurs Abdomen: Soft, Non Tender, Non-Distended, No Hepato-splenomegaly Extremities: Left upper extremity edema, Capillary Refill Less than 3 Seconds Skin: No rashes, No breakdown Musculoskeletal: No Tenderness to Palpation of Joints or Extremities Neurological: Cranial nerves II-XII grossly intact, Motor Exam 5/5 strength throughout, Sensory exam intact to light touch and pain Psych/Mental Status: Normal Affect, Appropriate Assessment & Plan Assessment/Plan (1) Non-STEMI (non-ST elevated myocardial infarction): (2) Pneumonia: QUALIFIERS: Laterality: left Lung location: lower lobe of lung Pneumonia type: due to unspecified organism Qualified Code(s): J18.9 - Pneumonia, unspecified organism (3) Left arm swelling: PLAN: Plan 1. Left lower lobe community-acquired pneumonia with a large left pleural effusion with hypoxia/elevated troponin ? Continue with antibiotics ? Plan for thoracentesis tomorrow with diagnostic lab work INR is 1.2 ? Sputum culture if able ? Will get an echo to evaluate her elevated troponin which is trending down and is likely related to her hypoxia and work of breathing i.e. demand ischemia. Unlikely to need a heart cath/denies any chest pain and serial troponins are trending down 2. Severe left upper extremity swelling/history of breast cancer ? Unclear as to the etiology will obtain Doppler in the morning ? Continue with therapeutic Lovenox ? CT of the chest was negative for PE ? Denies that any lymph nodes were surgically removed for her breast cancer DVT: Therapeutic Lovenox Charges/Coding Visit Charges Inpatient E&M: 12829 Subs Hosp L2
[2023-06-11 14:27] VITALS: BP 139/71; PULSE 97; RESP 16; TEMP 36.4; O2SAT 95
[2023-06-11] MEDS: Acetaminophen 325 MG Tablet 650 MG PO (16:06)
[2023-06-11 20:27] VITALS: BP 129/80; PULSE 96; RESP 18; TEMP 36.5; O2SAT 94
[2023-06-11] MEDS: 0.9% Saline Lock 10 ML Syringe IV (21:43)
[2023-06-12] VITALS (13 sets, daily range): BP systolic 115–151; BP diastolic 60–87; PULSE 88–102; RESP 16–18; TEMP 36.5–36.9; O2SAT 90–98
--- NOTE | 2023-06-12 00:39 | NURSING ---
Refused Mucinex at HS. Stated it has soy in it and she cant take anything with soy d/t her previous breast cancer treatments. Will pass this along to dayshift in report.
[2023-06-12 06:30] LABS: Absolute Lymphocyte Count 1.06 X10^3/uL (0.83-4.51); Absolute Neutrophil Count 6.7 X10^3/uL (2.0-7.7); Basophil# 0.05 X10^3/uL; Basophil% 0.5 % (0-1); Eosinophil# 0.08 X10^3/uL; Eosinophils% 0.9 % (0-5); Hematocrit 36.4 % (37-47); Lymphocyte # 1.06 X10^3/ul (0.83-4.51); Lymphocyte % 11.4 % (19-41); Mean Corp Hgb Conc 30.2 g/dL (32-36); Mean Corpuscular Hgb 27.8 pg (27.0-32.0); Mean Corpuscular Volume 92.2 fL (81-99); Mean Platelet Vol. 9.8 fl (6.2-12.0); Monocyte# 1.14 X10^3/uL; Monocyte% 12.3 % (0-10); NRBC Flagged by Analyzer 0 % (0-5); Neutrophil # 6.72 X10^3/uL (2.7-7.7); Neutrophil % 72.5 % (47-70); POSITIVE MORPHOLOGY YES; Platelet Count 216 K/mm3 (150-450); RBC Distribution Width CV 21.2 % (11.6-14.6); RBC Distribution Width SD 69.8 fl (35.1-43.9); Red Blood Count 3.95 M/mm3 (4.2-5.4); White Blood Count 9.3 K/mm3 (4.4-11.0)
[2023-06-12] MEDS: Miconazole Nitrate 43 GM Bottle 1 APPLIC TOPICAL ×3 (06:32→22:14)
[2023-06-12 06:35] LABS: Differential Indicated SCAN CRITERIA MET
[2023-06-12 06:46] LABS: International Normalized Ratio 1.3; Prothrombin Time (Protime)PT. 16.4 SECONDS (11.7-14.9)
[2023-06-12 06:54] LABS: ALB/GLOB Ratio 0.5 RATIO (0.9-2.4); AST(SGOT) 333 U/L (15-37); Alanine Aminotransfer ALT/SGPT 97 U/L (13-56); Albumin, Serum 1.9 g/dL (3.2-5.0); Alkaline Phosphatase 718 U/L (45-117); Anion Gap 7 (5-15); BUN 25 mg/dL (7-18); BUN/Creat Ratio 20.3 RATIO (10-20); Calcium,Total 9.7 mg/dL (8.5-10.1); Chloride 105 mmol/L (98-107); Creatinine, Serum 1.23 mg/dL (0.55-1.02); EST Glomerular Filtration Rate 45 mL/min (>60); Est Glom Filt Rate - Afr Amer 54 mL/min (>60); Globulin 3.9 g/dL (2.2-4.2); Glucose 87 mg/dL (74-106); LDH 352 U/L (84-246); Potassium 3.3 mmol/L (3.5-5.1); Protein, Total 5.8 g/dL (6.4-8.2); Sodium Level 141 mmol/L (136-145)
[2023-06-12 07:07] LABS: Anisocytosis 2+; Differential Comment SCANNED
[2023-06-12 07:08] LABS: Macrocytosis 1+; Microcytosis 1+
--- NOTE | 2023-06-12 08:15 | RAD_ITS ---
EXAM: XR CHEST, 2 VIEWS CLINICAL INDICATION: post thoracentesis TECHNIQUE: Frontal and lateral views of the chest. COMPARISON: No relevant prior studies available. FINDINGS: LUNGS AND PLEURAL SPACES: Partial obscuration of left heart border secondary to lingular airspace opacification. No gross pleural effusion. No pneumothorax. HEART: Normal heart size. MEDIASTINUM: No mediastinal or hilar mass. BONES/JOINTS: Mild dextroscoliosis of the thoracic spine. RAD/Chest Insp/Exp 2 View IMPRESSION: Lingular pneumonia/atelectasis. Electronically Signed: Ivan Muñoz MD at 9:05 EST ,
[2023-06-12] MEDS: Lidocaine 2% (20 ml mdv) 20 ML Vial INFILT (08:26)
--- NOTE | 2023-06-12 08:30 | FLU_PTH ---
PATHOLOGY RESULTS PATIENT: TRE ROJAS LOC: [facility] U#:[id number] AGE/SX: 78/F ROOM: [facility] RE06/10/[address]: Dr. Yash Pozo MD : 1945 BED: 1 DIS: 06/14/2023 SPEC #: [id number] RECD: 06/12/23 10:41 STATUS: BENI GINETTE #: [id number] AMIE: 06/12/23 08:[address]: Ronald Cartagena DEPT: CYTOLOGY RECD BY: Wen Gooden ENTERED: 06/12/23 10:41 SP TYPE: Fluid OTHR DR: Dr. Jc Sullivan, DO No Primary Care Phys Tissues: THORACIC FLUID Procedures: Special Stain Group II Surgery Specimen Level IV Cytospin Fluid Cytology Other HEADER OPERATION: Thoracentesis left PRE-OP DIAGNOSIS: Left pleural effusion TISSUE SUBMITTED: Thoracentesis fluid for cytology DIAGNOSIS CYTOLOGY Thoracentesis fluid for cytology (cytospin and cell block). Malignant cells present derived from metastatic adenocarcinoma. See comment. SJ:jin 06/13/2023 COMMENT Please also make reference to additional specimen ([id number]), liver, CT-guided core biopsy with diagnosis of metastatic adenocarcinoma . Case has been reviewed in consultation with Dr. Jacobson who concurs with the above diagnosis. IDC:AM CYTOLOGY STUDY Slides are reviewed. CYTOLOGY GROSS Received is 85 ml of orange cloudy fluid labeled with the patient's name and and designated per the requisition as thoracentesis. Submitted for cytology preparation including cell block. / jin 06/12/2023 TC:0 CPT: 43530, 59135
--- NOTE | 2023-06-12 08:46 | PRO.PCM_ITS ---
Procedure Report Date of Procedure: 06/12/23 Assessment & Plan Assessment/Plan (1) Pleural effusion, left: PLAN: PROCEDURE: Ultrasound Guided Thoracentesis ORDERING PROVIDER: Dr. Cartagena INDICATION: Female, 78 years old. Left pleural effusion. PROVIDER: SHERLY Reyes PROCEDURE: The risks, benefits, and alternatives to the procedure were explained to the patient. The specific risks of bleeding, infection, and pneumothorax requiring chest tube insertion were discussed and accepted. Written informed consent was obtained. The patient was placed in the sitting, upright position. Ultrasonographic evaluation of the bilateral lower pleural spaces was carried out. An adequate pocket was identified in the left lower pleural space.The overlying skin was prepped and draped in sterile fashion. 2% lidocaine was administered subcutaneously for local anesthesia. Under ultrasound guidance, a 5-[place] thoracentesis needle/catheter system was advanced into the left posterior lower pleural fluid collection. 900 ml of clear keira colored fluid was drained. 100 mL of this fluid was sent to the laboratory for analysis, as per requesting physician. The catheter was removed, and a sterile dressing was applied. The patient tolerated the procedure well. A chest x-ray was ordered. IMPRESSION: Successful ultrasound-guided thoracentesis of left pleural effusion. Procedures Radiology Radiology US Procedures: 28570 Thoracentesis
[2023-06-12] MEDS: Aspirin 81 MG TAB.CHEW PO (09:24)
[2023-06-12] MEDS: Cholecalciferol (Vit D3) 125 MCG CAPSULE (5,000 UNITS) PO (09:24)
[2023-06-12 09:39] LABS: Body Fluid Mononuclear WBC # 0.269 10^3/uL; Body Fluid Mononuclear WBC % 95.7 %; Body Fluid Polynuclear WBC # 0.012 10^3/uL; Body Fluid Polynuclear WBC % 4.3 %; Body Fluid Total Cells Counted 0.355 10^3/ul; Red Cell Count/Body Fluid 0.008 10^6/ul; White Blood Count/Body Fluid 0.281 10^3/uL
--- NOTE | 2023-06-12 09:41 | PCM.PN.HOSP ---
Subjective Subjective Feels little bit better today after her thoracentesis, still waiting for Doppler as well as echo Objective Data Objective Data Vital Signs: Vital Signs Temp Pulse Resp BP Pulse Ox O2 Del Method O2 Flow Rate 97.7 F L 92 16 115/60 93 Room Air 1 06/12/23 09:34 06/12/23 09:34 06/12/23 09:34 06/12/23 09:34 06/12/23 09:34 06/12/23 09:34 06/12/23 09:07 Oxygen Flow Rate (L/min) 1 Oxygen Delivery Method Room Air Weight: 213 lb 13.574 oz Body Mass Index (BMI) 32.5 Intake & Output: Intake and Output for Last 24 Hours 06/11/23 06/12/23 06/13/23 03:59 03:59 03:59 Intake Total 725 / 725 60 / 60 Output Total 800 / 800 1300 / 1300 Balance -75 / -75 -1240 / -1240 Lab / Micro Data 06/12/23 05:55 06/12/23 05:55 Labs: Laboratory Results - last 24 hr 06/12/23 05:55: WBC 9.3, RBC 3.95 L, Hgb 11.0 L, Hct 36.4 L, MCV 92.2, MCH 27.8, MCHC 30.2 L, RDW Std Deviation 69.8 H, RDW Coeff of Jennifer 21.2 H, Plt Count 216, MPV 9.8, Immature Gran % (Auto) 2.400 H, Neut % (Auto) 72.5 H, Lymph % (Auto) 11.4 L, [place] % (Auto) 12.3 H, Eos % (Auto) 0.9, Baso % (Auto) 0.5, Absolute Neuts (auto) 6.7, Absolute Lymphs (auto) 1.06, Nucleated RBC % 0, Differential Comment SCANNED, Anisocytosis 2+, Microcytosis 1+, Macrocytosis 1+, PT 16.4 H, INR 1.3, Sodium 141, Potassium 3.3 L, Chloride 105, Carbon Dioxide 29.0, Anion Gap 7, BUN 25 H, Creatinine 1.23 H, Estim Creat Clear Calc 36.80, Est GFR (MDRD) Af Amer 54 L, Est GFR (MDRD) Non-Af 45 L, BUN/Creatinine Ratio 20.3 H, Glucose 87, Calcium 9.7, Total Bilirubin 2.30 H, AST 333 H, ALT 97 H, Alkaline Phosphatase 718 H, Lactate Dehydrogenase 352 H, Total Protein 5.8 L, Albumin 1.9 L, Globulin 3.9, Albumin/Globulin Ratio 0.5 L 06/12/23 08:30: Fluid WBC 0.281, Fluid RBC 0.008, Fluid Tot Cell Count 0.355 H, Fld Polynuclear WBCs # 0.012, Fld Polynuclear WBCs % 4.3, Fluid Mononuclear WBCs 0.269, Fld Mononuclear WBCs % 95.7 Micro: Microbiology 06/10/23 23:40 Mucosa - Nasopharyngeal Respiratory Panel (PCR) - Final 06/11/23 03:10 Urine, Clean Catch Legionella Antigen - Final 06/11/23 03:10 Urine, Clean Catch Streptococcus pneumoniae Antigen (M - Final 06/10/23 23:40 Mucosa - Nasopharyngeal Influenza Types A,B Direct FA (HOMERO) - Final Radiography Diagnostic Testing: Radiology Impression Chest X-Ray 06/12/23 08:15 IMPRESSION: Lingular pneumonia/atelectasis. Electronically Signed: Ivan Muñoz MD at 9:05 EST , Physical Exam Narrative General: Alert, Oriented x3, Cooperative, No apparent distress HEENT: Atraumatic, PERRLA, EOMI, Normocephalic Oral: Moist Mucosa Neck: Supple, No JVD Lungs: Diminished, normal air movement, No rhonchi, No wheeze, No rales Cardiovascular: Regular rate, Regular Rhythm, Normal S1, Normal S2, No murmurs Abdomen: Soft, Non Tender, Non-Distended, No Hepato-splenomegaly Extremities: Left upper extremity edema, Capillary Refill Less than 3 Seconds Skin: No rashes, No breakdown Musculoskeletal: No Tenderness to Palpation of Joints or Extremities Neurological: Cranial nerves II-XII grossly intact, Motor Exam 5/5 strength throughout, Sensory exam intact to light touch and pain Psych/Mental Status: Normal Affect, Appropriate Assessment & Plan Assessment/Plan (1) Non-STEMI (non-ST elevated myocardial infarction): (2) Pneumonia: QUALIFIERS: Pneumonia type: due to unspecified organism Laterality: left Lung location: lower lobe of lung Qualified Code(s): J18.9 - Pneumonia, unspecified organism (3) Left arm swelling: PLAN: Plan 1. Left lower lobe community-acquired pneumonia with a large left pleural effusion with hypoxia/elevated troponin ? Continue with antibiotics ? Awaiting for fluid evaluation, she had almost a liter out of her left lung ? Sputum culture if able ? Will get an echo to evaluate her elevated troponin which is trending down and is likely related to her hypoxia and work of breathing i.e. demand ischemia. Unlikely to need a heart cath/denies any chest pain and serial troponins are trending down 2. Severe left upper extremity swelling/history of breast cancer ? Unclear as to the etiology will obtain Doppler ? Continue with therapeutic Lovenox ? CT of the chest was negative for PE ? Denies that any lymph nodes were surgically removed for her breast cancer 3. Elevated LFTs unclear as to the etiology ? CT of the chest when looking for PE demonstrated and homogeneous contrast uptake however it was reported that during the thoracentesis there is the potential for possible lesions ? Given her history of breast cancer we will proceed with a CT of her abdomen pelvis specifically looking at the liver DVT: Therapeutic Lovenox Charges/Coding Visit Charges Inpatient E&M: 93939 Subs Hosp L2
--- NOTE | 2023-06-12 09:42 | CT_ITS ---
EXAM: CT ABDOMEN AND PELVIS WITHOUT AND WITH INTRAVENOUS CONTRAST CLINICAL INDICATION: liver evaluation -- brandy LFT, h/o breast ca, ?lesions seen on thoracentesis TECHNIQUE: Helically acquired images were obtained of the abdomen and pelvis without and with intravenous contrast. This CT exam was performed using one or more of the following dose reduction techniques: automated exposure control, adjustment of the mA and/or kV according to patient size, and/or use of iterative reconstruction technique. CONTRAST: IV 100mL Isovue-300 COMPARISON: CTA chest 06/11/2023 FINDINGS: LOWER THORAX: Interval decrease in the size of the left pleural effusion. Residual minimal pleural effusion and bibasilar and lingular atelectasis. ABDOMEN: LIVER: Multiple space-occupying lesions noted throughout the liver consistent with diffuse metastatic disease. PANCREAS: Normal. No focal cystic or solid mass. SPLEEN: Normal. Normal size without focal cystic or solid mass. ADRENALS: Normal. No nodules. KIDNEYS AND URETERS: Precontrast images demonstrate residual contrast within distended left renal collecting system which may be due to distal ureteral obstruction or vesicoureteral reflux. Left pyelocaliectasis and ureterectasis noted. Multiple parapelvic right renal cysts. STOMACH AND BOWEL: Surgical resection of the proximal colon noted. PELVIS: APPENDIX: No evidence of acute appendicitis. BLADDER: Normal. REPRODUCTIVE: Densely calcified 3.6 cm uterine mass consistent with fibroid. ABDOMEN and PELVIS: INTRAPERITONEAL SPACE: Minimal amount of ascites right upper quadrant pelvis. No free air. BONES/JOINTS: Prominent degenerative changes are noted within the spine. SOFT TISSUES: Normal. No discrete abdominal or pelvic wall hernia. VASCULATURE: Normal. Abdominal aorta is non-dilated. LYMPH NODES: Normal. No enlarged lymph nodes. CT/CT Abd/Pelvis W/WO Contrast IMPRESSION: 1. Extensive tumor replacement within the liver consistent with metastatic disease. 2. Interval decrease in size of left presumably related to recent thoracentesis. Electronically Signed: Ivan Muñoz MD at 15:25 EST ,
[2023-06-12 09:53] LABS: Glucose, Body Fluid 87 mg/dL (40-70); LDH,Body Fluid 106 Units/L (Not Establ.); Protein, Body Fluid 2.5 g/dL (Not Establ.)
--- NOTE | 2023-06-12 10:55 | WOUNDNOTE ---
Not able to assess buttocks. pt getting testing at this time.
[2023-06-12 11:05] LABS: Lymphocytes 41 %; Macrophages 28 %; Mesothelial Cells 8 %; Monocytes 19 %; Neutrophil (Segs) 4 %
[2023-06-12 11:07] LABS: Appearance/Body Fluid SL CLDY; Auto B Fluid Analyzer BKGD Ct COUNTS W/IN LIMITS (W/IN LIMITS); Body Fluid QC Type(s) BF1Q; Color/Body Fluid YELLOW; Source- Body Fluid THORACENTESIS
[2023-06-12] MEDS: Ceftriaxone 1 GM/50 mL Premix Q24 IV (12:00)
[2023-06-12] MEDS: 0.9% Saline Lock 10 ML Syringe IV (12:01)
[2023-06-12] MEDS: Azithromycin 500 MG in Dextrose 5%-Water (250mL Bag) 250 ML 250 MG IV (12:56)
--- NOTE | 2023-06-12 13:27 | WOUNDNOTE ---
wound photo: sacrum
[2023-06-12] MEDS: Acetaminophen 325 MG Tablet 650 MG PO (15:37)
--- NOTE | 2023-06-12 17:00 | CASEMGMT ---
Care Management Face to Face with patient for initial transition planning/care coordination assessment.? This designer writer introduced self and role at [facility]. Patient lying in bed, alert and oriented. Patient willing to participate in assessment and is able to answer all questions appropriately.? Care providers, pharmacy, and demographics verified. Admitting Diagnosis: Non-STEMI, pneumonia Other diagnosis history: Patient reports history of breast cancer PCP: Last physician was Dr. Castro at [facility], has not seen in 4 years Specialists: Went to [facility] in [place] seeing Dr. Aquino for oncology, again over 4 years ago Preferred Pharmacy: [facility] [place] [facility] Insurance: Medicare A & B, [place] as secondary Prescription Benefit:?Yes Living Will/HPOA: Patient does not have and reports to this designer writer that is not ready to think about completing these forms. LNOK: Ray. 3 sons: Celso Brooke, and Evan. Edwardo and Celso are both local. Living Arrangements: Reports to live in a one-story home with . 3 steps to enter the home. Reports prior to a couple of weeks ago was fairly independent with ADL completion. Patient describes self as ordered since 1994 when patient's mother and then subsequent other deaths in the family, resulting in patient taking family items into the home and having a hard time throwing things away. Transportation: Both patient and patient's drive. DME/HHC: Patient denies any previous home health care. Reports has ordered various medical equipment through catalogs, with no specific use of any particular DME company. Reports to have a shower chair, raised toilet seat, rollator, pulse ox, blood pressure cuff, and a portable O2 machine that creates oxygen (ordered this out of the catalog). Reports has order to lift chairs. Looking at installing a walk-in shower. Community Resources: Denies use of any community resources. Patient goals: Patient wishes to discharge home, and would be open to home health care. Patient would also be open to Meals on Wheels information. Educated patient that to receive home health care would need a primary care physician. Patient agrees to accept a primary care list. Broached that home health care may be delayed in starting if patient does not have a PCP appointment in a timely manner. This designer writer did provide patient with a care port list of home health care providers, relative to patient's geographical region, in which includes Medicare star and quality data. This designer writer also printed same list for long term facility, but patient declined the list at this time. Updated RN and CM. Disposition Plan: Tentative home with home health care, but start of services could be delayed. May need to revisit long term facility, based on how patient does with continued hospitalization. Social work and manager enterprise content management remains available. -JEANETH Weems, LAB ANIMAL TECHNICIAN
--- NOTE | 2023-06-12 17:05 | CASEMGMT ---
Social Work As per admitting piano case and bench assembler, pt does not have LW/POA, and declined any additional information. JEANETH Roberts
--- NOTE | 2023-06-12 17:41 | CASEMGMT ---
LUISANA JENSEN NOTE: Pt provided w/local PCP directory list. Analisa FUENTES RN CM
[2023-06-13] VITALS (22 sets, daily range): BP systolic 129–165; BP diastolic 55–88; PULSE 90–97; RESP 16–20; TEMP 36.6–37; O2SAT 86–98
--- NOTE | 2023-06-13 | IMM_PTH ---
PATHOLOGY RESULTS PATIENT: TRE ROJAS LOC: [facility] U#:[id number] AGE/SX: 78/F ROOM: [facility] RE06/10/[address]: Dr. Yash Pozo MD : 1945 BED: 1 DIS: 06/14/2023 SPEC #: [id number] RECD: 06/13/23 11:02 STATUS: BENI REDigna #: [id number] AMIE: 06/13/23 00:[address]: Ronald Cartagena DEPT: IMMUNOHISTOCHEMISTRY RECD BY: Randa Rock ENTERED: 06/13/23 11:03 SP TYPE: IMMUNO OTHR DR: MD Dr. Jc Williamson, DO No Primary Care Phys Tissues: Liver, NOS Procedures: RCC (add) P53 (initial) NAPSIN A (add) CK20 (add) CK5-6 (add) CK7 (add) CK8 (add) E-CAD (add) HEP PAR (add) HER2 JESSICA (add) KI-67 (add) MAMM (add) SC (add) TTF1 (add) Pankeratin (add) GATA3 (add) P40 (add) ER (initial) PHYSICIAN & INSTITUTION [place] [address] SPECIMEN INFORMATION: Tissue Source: Liver Clinical Info: Liver mass Specimen Number: [id number] CPT code: 83715, 60067 x17 METHODOLOGY: Deparaffinized sections of prefer/formalin-fixed tissue or PAP/DQ stained slides are incubated with monoclonal/polyclonal antibodies/oligonucleotide probes. Localization is made via biotin free immunoperoxidase method. Appropriate controls are performed and reacted as expected. Results on target cell population are indicated in the following table: RESULTS: ANTIBODY / CLONE RESULT E-Cad (ECH-6) positive Mammaglobin (31A5) positive GATA3 (L50-823) positive AE1-3 (AE1/AE3/PCK26) positive CK7 (OV-TL12/30) positive CK8 (26ywgnG93) positive CK20 (KS20.8) negative TTF-1 (8G7G3/1) negative Napsin A (Rabbit Polyclonal) negative HepPar (OCh1E5) negative RCC (PN-15) positive, focal CK5-6 (D5 & 1684) negative P40 (BC28) negative P53 (DO-7) positive, rare cells weak (wild type pattern) Ki-67 (30-9) positive, low (~15-20%) MORPHOMETRIC ANALYSIS ER (clone 6F11) positive (95%, strong intensity) SC (clone 16/1E2) positive (82%, moderate intensity) Her-2Neu (clone CB11) positive (3+) The prognostic test for HER2 is performed on formalin-fixed paraffin embedded tissue. A 3+ (positive) staining pattern is defined as intense, homogeneous, complete, circumferential membranous staining in >10% of contiguous tumor cells. A similar weak (2+) staining pattern is interpreted as equivocal. WICHO follow-up testing is recommended for all equivocal cases. Positivity/negativity for ER/SC is reported if > or < 1% of the tumor cells are immuno- reactive, respectively. The ASCO/CAP criteria is used for scoring. Reference: Journal of Clinical Oncology, 2013; 31:4188-9474 & 2010; 16:0234-3658. Ischemic time: Less than one hour. Duration of fixation: 10 Hrs; Sample Adequate: Yes. These assays have not been validated on decalcified tissues. Results should be interpreted with caution given the likelihood of false negativity on decalcified specimens or fixation greater than 72 hours. Alternative testing methods (FISH/dualISH for Her2; gene expression for ER) are recommended, if applicable. Please notify the laboratory if additional testing is required. These tests were developed and their performance characteristics determined by [facility]. They may not have been cleared or approved by the U.S. Food and Drug Administration. The FDA has determined that such clearance or approval is not necessary. The above immunohistochemical/dualISH markers are ordered and reviewed by the Pathologist. INTERPRETATION: Liver, CT-guided core biopsy: Metastatic adenocarcinoma, consistent with breast primary (ductal carcinoma). SJ:jin 06/14/2023 Case has been reviewed in consultation with Dr. Jacobson who concurs with the above diagnosis. IDC:AM
[2023-06-13 06:00] LABS: Absolute Lymphocyte Count 1.16 X10^3/uL (0.83-4.51); Absolute Neutrophil Count 6.2 X10^3/uL (2.0-7.7); Basophil# 0.07 X10^3/uL; Basophil% 0.8 % (0-1); Eosinophil# 0.04 X10^3/uL; Eosinophils% 0.5 % (0-5); Hematocrit 36.3 % (37-47); Hemoglobin 11.1 g/dL (12.0-15.0); Lymphocyte # 1.16 X10^3/ul (0.83-4.51); Lymphocyte % 13.2 % (19-41); Mean Corp Hgb Conc 30.6 g/dL (32-36); Mean Corpuscular Hgb 27.8 pg (27.0-32.0); Monocyte# 1.13 X10^3/uL; Monocyte% 12.9 % (0-10); NRBC Flagged by Analyzer 0 % (0-5); Neutrophil # 6.19 X10^3/uL (2.7-7.7); Neutrophil % 70.3 % (47-70); POSITIVE MORPHOLOGY YES; Platelet Count 210 K/mm3 (150-450); RBC Distribution Width SD 69.2 fl (35.1-43.9); Red Blood Count 3.99 M/mm3 (4.2-5.4); White Blood Count 8.8 K/mm3 (4.4-11.0)
[2023-06-13] MEDS: Miconazole Nitrate 43 GM Bottle 1 APPLIC TOPICAL ×2 (06:09→20:17)
[2023-06-13 06:24] LABS: ALB/GLOB Ratio 0.5 RATIO (0.9-2.4); AST(SGOT) 336 U/L (15-37); Alanine Aminotransfer ALT/SGPT 97 U/L (13-56); Alkaline Phosphatase 669 U/L (45-117); Anion Gap 8 (5-15); BUN 22 mg/dL (7-18); BUN/Creat Ratio 19.6 RATIO (10-20); Calcium,Total 9.3 mg/dL (8.5-10.1); Chloride 104 mmol/L (98-107); Creatinine, Serum 1.12 mg/dL (0.55-1.02); Differential Indicated SCAN CRITERIA MET; EST Glomerular Filtration Rate 50 mL/min (>60); Est Glom Filt Rate - Afr Amer 60 mL/min (>60); Estimated Creatinine Clearance 40.41 ml/min; Globulin 3.9 g/dL (2.2-4.2); Glucose 81 mg/dL (74-106); Potassium 3.4 mmol/L (3.5-5.1); Protein, Total 5.9 g/dL (6.4-8.2); Sodium Level 140 mmol/L (136-145)
[2023-06-13 07:09] LABS: Anisocytosis 1+
[2023-06-13] MEDS: 0.9% Normal Saline (250mL Bag) 250 ML 15 ML IV (08:55)
[2023-06-13] MEDS: Midazolam 2 MG/2 ML Syringe IV (09:10)
[2023-06-13] MEDS: fentaNYL 100 MCG/2 ML Ampul IV (09:12)
[2023-06-13] MEDS: Lidocaine 2% (20 ml mdv) 20 ML Vial INFILT (09:23)
--- NOTE | 2023-06-13 09:24 | PN.HOSP_ITS ---
Subjective Subjective Breathing little bit easier especially after her thoracentesis, upper and lower extremity Dopplers were negative for blood clots and nothing was seen on the CTA of the chest to explain the swelling in her left arm Objective Data Objective Data Vital Signs: Vital Signs Temp Pulse Resp BP Pulse Ox O2 Del Method O2 Flow Rate 98.6 F 96 20 H 152/69 H 91 Nasal Cannula 2 06/13/23 08:48 06/13/23 09:10 06/13/23 09:10 06/13/23 09:10 06/13/23 08:48 06/13/23 09:10 06/13/23 09:10 Oxygen Flow Rate (L/min) 2 Oxygen Delivery Method Nasal Cannula Weight: 213 lb 13.574 oz Body Mass Index (BMI) 32.5 Intake & Output: Intake and Output for Last 24 Hours 06/12/23 06/13/23 06/14/23 03:59 03:59 03:59 Intake Total 725 / 725 605 / 605 0 / 0 Output Total 800 / 800 1300 / 1300 Balance -75 / -75 -695 / -695 0 / 0 Lab / Micro Data 06/13/23 05:40 06/13/23 05:40 Labs: Laboratory Results - last 24 hr 06/12/23 08:30: Fluid Source THORACENTESIS, Fluid Color YELLOW, Fluid Appearance SL CLDY, Fluid WBC 0.281, Fluid RBC 0.008, Fluid Tot Cell Count 0.355 H, Fld Polynuclear WBCs # 0.012, Fld Polynuclear WBCs % 4.3, Fluid Mononuclear WBCs 0.269, Fld Mononuclear WBCs % 95.7, Fluid Neutrophils 4, Fluid Lymphocytes 41, Fluid Monocytes 19, Fluid Macrophages 28, Fld Mesothelial Cells 8, Fl Pathologist Comment May follow, Fluid Glucose 87 H, Fluid Total Protein 2.5, Fluid LDH 106, Fluid Comment 2 SEE COMMENT 06/13/23 05:40: WBC 8.8, RBC 3.99 L, Hgb 11.1 L, Hct 36.3 L, MCV 91.0, MCH 27.8, MCHC 30.6 L, RDW Std Deviation 69.2 H, RDW Coeff of Jennifer 21.0 H, Plt Count 210, MPV 10.0, Immature Gran % (Auto) 2.300 H, Neut % (Auto) 70.3 H, Lymph % (Auto) 13.2 L, [place] % (Auto) 12.9 H, Eos % (Auto) 0.5, Baso % (Auto) 0.8, Absolute Neuts (auto) 6.2, Absolute Lymphs (auto) 1.16, Nucleated RBC % 0, Anisocytosis 1+, Sodium 140, Potassium 3.4 L, Chloride 104, Carbon Dioxide 28.0, Anion Gap 8, BUN 22 H, Creatinine 1.12 H, Estim Creat Clear Calc 40.41, Est GFR (MDRD) Af Amer 60, Est GFR (MDRD) Non-Af 50 L, BUN/Creatinine Ratio 19.6, Glucose 81, Calcium 9.3, Total Bilirubin 2.30 H, AST 336 H, ALT 97 H, Alkaline Phosphatase 669 H, Total Protein 5.9 L, Albumin 2.0 L, Globulin 3.9, Albumin/Globulin Ratio 0.5 L Micro: Microbiology 06/10/23 23:40 Mucosa - Nasopharyngeal Respiratory Panel (PCR) - Final 06/11/23 03:10 Urine, Clean Catch Legionella Antigen - Final 06/11/23 03:10 Urine, Clean Catch Streptococcus pneumoniae Antigen (M - Final 06/10/23 23:40 Mucosa - Nasopharyngeal Influenza Types A,B Direct FA (HOMERO) - Final Radiography Diagnostic Testing: Radiology Impression Echocardiogram 06/10/23 22:46 Interpretation Summary The estimated ejection fraction is 60 %. Stage 1 diastolic dysfunction. Mild concentric left ventricular hypertrophy. Multiple echolucent lesions were noted in the liver suspicious for metastasis Recommendation; To consider further evaluation with CT abdomen. No previous echo for comparison The study was technically difficult. Contrast injection was performed. Ordering Physician: Guevara Adamson Referring Physician: JUAQUIN PCP Performed By: Nereida Mcgee, NAGI, RVT Venous Doppler Study 06/10/23 23:35 Interpretation Summary Deep veins of the upper extremities are bilaterally patent and compressible segmentally. There is no evidence of deep vein thrombosis on either side. The superficial veins of the upper extremities, the basilic and cephalic veins, are patent and compressible. There is no evidence of upper extremity superficial thrombophlebitis on either side involving the veins imaged. Ordering Physician: Guevara Adamson Performed By: Evan Schrader RVT ??? Venous Doppler Study 06/11/23 05:07 Interpretation Summary Deep veins of the lower extremities are bilaterally patent and compressible segmentally. There is no evidence of deep vein thrombosis on either side. Valvular competence appears intact within the proximal deep venous systems bilaterally. The great saphenous veins appear bilaterally patent and compressible segmentally. Ordering Physician: Guevara Adamson Performed By: Evan Schrader RVT Abdomen/Pelvis CT 06/12/23 09:42 IMPRESSION: 1. Extensive tumor replacement within the liver consistent with metastatic disease. 2. Interval decrease in size of left presumably related to recent thoracentesis. Electronically Signed: Ivan Muñoz MD at 15:25 EST , Physical Exam Narrative General: Alert, Oriented x3, Cooperative, No apparent distress HEENT: Atraumatic, PERRLA, EOMI, Normocephalic Oral: Moist Mucosa Neck: Supple, No JVD Lungs: Diminished, normal air movement, No rhonchi, No wheeze, No rales Cardiovascular: Regular rate, Regular Rhythm, Normal S1, Normal S2, No murmurs Abdomen: Soft, Non Tender, Non-Distended, No Hepato-splenomegaly Extremities: Left upper extremity edema, Capillary Refill Less than 3 Seconds Skin: No rashes, No breakdown Musculoskeletal: No Tenderness to Palpation of Joints or Extremities Neurological: Cranial nerves II-XII grossly intact, Motor Exam 5/5 strength throughout, Sensory exam intact to light touch and pain Psych/Mental Status: Normal Affect, Appropriate Assessment & Plan Assessment/Plan (1) Non-STEMI (non-ST elevated myocardial infarction): (2) Pneumonia: QUALIFIERS: Pneumonia type: due to unspecified organism Laterality: left Lung location: lower lobe of lung Qualified Code(s): J18.9 - Pneumonia, unspecified organism (3) Left arm swelling: PLAN: Plan 1. Left lower lobe community-acquired pneumonia with a large left pleural effusion with hypoxia/elevated troponin ? Continue with antibiotics ? Awaiting for fluid evaluation, she had almost a liter out of her left lung ? Sputum culture if able ? Echo is unremarkable and does not show any wall motion abnormality elevated troponin was likely due to demand ischemia 2. Severe left upper extremity swelling/history of breast cancer ? Unclear as to the etiology, Doppler of her upper and lower extremities were negative for DVT ? Can discontinue therapeutic Lovenox ? CT of the chest was negative for PE ? Denies that any lymph nodes were surgically removed for her breast cancer 3. Elevated LFTs in the setting of metastatic disease to the liver ? CT of the chest when looking for PE demonstrated and homogeneous contrast uptake however it was reported that during the thoracentesis there is the potential for possible lesions ? CT of her liver demonstrated multiple liver lesions consistent with metastasis of unknown primary ? Will plan for a CT-guided biopsy of one of her liver lesions DVT: SCDs Charges/Coding Visit Charges Inpatient E&M: 89857 Subs Hosp L2
--- NOTE | 2023-06-13 09:30 | ASPIGT_PTH ---
PATHOLOGY RESULTS PATIENT: TRE ROJAS LOC: [facility] U#:[id number] AGE/SX: 78/F ROOM: [facility] RE06/10/[address]: Dr. Yash Pozo MD : 1945 BED: 1 DIS: 06/14/2023 SPEC #: [id number] RECD: 06/13/23 09:38 STATUS: BENI GINETTE #: [id number] AMIE: 06/13/23 09:[address]: Ronald Cartagena DEPT: SURGICAL PATHOLOGY RECD BY: Wen Gooden ENTERED: 06/13/23 09:39 SP TYPE: ASP RAD OTHR DR: MD Dr. Jc Williamson, DO No Primary Care Phys Tissues: Liver, NOS Procedures: FNA Specimen Adequacy Surgery Specimen Level V Imprint (control) HEADER OPERATION: Liver, CT-guided core biopsy PRE-OP DIAGNOSIS: Liver mass TISSUE SUBMITTED: Liver 18-gauge x5 MICROSCOPIC DIAGNOSIS Liver, CT-guided core biopsy: Metastatic adenocarcinoma. See note. Note: Immunohistochemistry ([id number]) supports the above diagnosis and consistent with breast primary (ductal carcinoma). See comment. SJ:jin 06/14/2023 COMMENT The specimen is evaluated at the time of biopsy by Dr. Sultana. Immediate Evaluation = Malignant cells present derived from non-small cell carcinoma. Molecular studies on the tumor can be performed if clinically indicated. Please notify the laboratory if they are needed. Please also make reference to additional cytology specimen ([id number]), thoracentesis fluid for cytology with diagnosis of malignant cells present derived from metastatic adenocarcinoma. Case has been reviewed in consultation with Dr. Jacobson who concurs with the above diagnosis. IDC:AM MICROSCOPIC DESCRIPTION Slides are reviewed. GROSS DESCRIPTION Received in fixative is one container labeled with the patient's name and designated liver. The specimen consists of multiple irregular fragments of herrera soft tissue that in aggregate measure 1.6 x 0.3 x 0.1 cm. The specimen is totally submitted in one cassette. Two touch imprints are prepared at the time of core biopsy. / Gonzalez 06/13/2023 TC:0 CPT: 03993, 19983
[2023-06-13] MEDS: Ceftriaxone 1 GM/50 mL Premix Q24 IV (10:42)
[2023-06-13] MEDS: 0.9% Saline Lock 10 ML Syringe IV (10:42)
--- NOTE | 2023-06-13 10:46 | PCM.OP.PRO ---
Procedure Report Date of Procedure: 06/13/23 Assessment & Plan Assessment/Plan (1) Liver lesion: PLAN: PROCEDURE: CT DIRECTED CORE LIVER LESION BIOPSY ORDERING PROVIDER: Dr. Cartagena INDICATION: Female, 78 years old. Liver lesions. PROVIDER: SHERLY Reyes CONSENT: Written informed consent was obtained having explained the risks, benefits and alternatives in detail with the patient who accepted the risks and agreed to proceed. Laboratory review and clinical assessment was performed. PRE-PROCEDURE SEDATION ASSESSMENT: Current history and physical dictated by referring provider and reviewed. No clinical changes since date of exam. Patient has an ASA Class of 2. PROCEDURAL SEDATION PROTOCOL: The Drugs used were: 2 mg Versed, IV, and 50 mcg Fentanyl, IV. The sedation time was: 21 minutes, starting at 9:10 AM and terminated at 9:31 AM. The procedural sedation protocol was independently monitored by the department nurse. RADIATION DOSAGE (If Supplied By Facility): CTDIvol = 22.37 mGy, DLP = 768.94 mGycm Individualized dose optimization techniques were used for this CT. TECHNIQUE: The patient was placed in a supine position. Using CT image guidance with image documentation, a safely accessible lesion in the superior lateral of the left lobe of the liver was identified. The skin surface was prepped and draped in a sterile fashion. 2% lidocaine was used for local anesthesia. Using an anterior approach, puncture of the liver was uneventful with an 18-gauge core needle system. 5, 18-gauge core samples were obtained.pathology was present to prepare the samples on slides and in formalin for further assessment. The needles was removed. An occlusive sterile dressing was applied. Patient tolerated the procedure well, and returned to the holding bay for nursing monitoring. IMPRESSION: 1. CT directed core needle biopsy of a liver lesion, using CT image guidance with image documentation as described. 2. Procedural Sedation protocol utilized with independent monitoring. Procedures Radiology Radiology CT Procedures: 20580 Biopsy Liver
[2023-06-13] MEDS: Cholecalciferol (Vit D3) 125 MCG CAPSULE (5,000 UNITS) PO (12:44)
[2023-06-13] MEDS: Azithromycin 500 MG in Dextrose 5%-Water (250mL Bag) 250 ML 250 MG IV (12:44)
--- NOTE | 2023-06-13 13:00 | CASEMGMT ---
LUISANA JENSEN NOTE: RN CM to room. Pt resting in bed. @ bedside. Pt states she has not reviewed the PCP list or HHC list yet, but will do so now. She was made aware someone would f/u with her re: her choices/preferences. Analisa SHAHIDN LUISANA CM
[2023-06-14 04:00] VITALS: BP 142/71; PULSE 90; RESP 18; TEMP 36.2; O2SAT 96
--- NOTE | 2023-06-14 08:08 | DCINST_ITS ---
Discharge Instructions Diet Discharge Diet: No restrictions Activity Discharge Activity: Return to Normal Activity Weight Bearing Status: Weight bearing as tolerated Dressing / Incision Call your doctor if you observe: Fever of 101 or Higher, Coldness, Increased Pain, Numbness or Tingling, Change in Color, Inability to urinate, Inability to have a bowel movement, Using more than 1 pad per hour, Shortness of breath, Dizziness, Fainting spells, Swelling in the ankles, Chest pain, Prolonged hiccupping, Increased palpitations (irregular heartbeat) and Calf discomfort Follow Up Care When: IN 2 WEEKS Test Results: Test results from this visit will be discussed in further detail at your follow- up appointment, if applicable. Discharge Plan Admission Admit Date/Time: 06/10/23 22:38 Primary Reason for Your Visit: Pleural effusion. Liver mass Attending Provider: Yash Pozo Primary Care Provider: Care Physician,No Primary Consulting Providers: Jc Sullivan; Colin Foreman; Ronald Cartagena Instructions Patient Instructions: RAD RN Biopsy Liver Ronaldo, ARIELA RN Procedural Sedation Discharge Orders/Prescriptions Prescriptions: New guaifenesin [Mucus Relief ER] 1,200 mg Tablet Extended Release 12hr 1,200 mg PO BID 7 Days Qty: 14 0RF aspirin 81 mg Tablet,Chewable 81 mg PO BREAKFAST 30 Days Qty: 30 2RF levofloxacin 500 mg tablet 500 mg PO DAILY Qty: 3 0RF albuterol sulfate 90 mcg/actuation HFA aerosol inhaler 2 puff inhalation Q6H PRN (Reason: shortness of breath or wheezing) Qty: 8.5 0RF Continued cholecalciferol (vitamin D3) [Vitamin D3] 125 mcg (5,000 unit) tablet 5,000 unit PO DAILY Referrals / Follow Up: Tian Harding DO [Med Staff - Active Staff] - Within 1 Month (Malignant effusion) Alek Flower MD [Med Staff - Active Staff] - Within 2 Weeks (Liver mass with a liver biopsy showing metastatic adenocarcinoma consistent with breast primary ductal carcinoma) Care Physician,No Primary [Primary Care Provider] - Disposition Disposition (needs filled in before D/C Order can be placed): Home Health Service
[2023-06-14 08:55] VITALS: BP 134/64; PULSE 91; RESP 14; TEMP 36.3; O2SAT 93
[2023-06-14] MEDS: Ceftriaxone 1 GM/50 mL Premix Q24 IV (09:00)
[2023-06-14] MEDS: 0.9% Saline Lock 10 ML Syringe IV (09:03)
[2023-06-14] MEDS: Aspirin 81 MG TAB.CHEW PO (09:05)
[2023-06-14] MEDS: Azithromycin 500 MG in Dextrose 5%-Water (250mL Bag) 250 ML 250 MG IV (09:05)
[2023-06-14] MEDS: Cholecalciferol (Vit D3) 125 MCG CAPSULE (5,000 UNITS) PO (09:05)
--- NOTE | 2023-06-14 09:37 | CASEMGMT ---
Discharge Planning This ad writer has met with patient and her several times regarding picking out a PCP so she is able to have HH upon discharge. As of this morning, they have not reached out to family members as they stated they wanted to do for some additional input. LUISANA CM updated. Heidy Rucker, Discharge Planning Asst.
[2023-06-14 10:30] VITALS: O2SAT 90
[2023-06-14 11:00] VITALS: BP 133/65; PULSE 95; RESP 14; TEMP 36.5; O2SAT 92
[2023-06-14] MEDS: Acetaminophen 325 MG Tablet 650 MG PO (11:50)
[2023-06-14 12:44] LABS: Pathologist Comment/Body Fluid Reviewed
[2023-06-14 14:32] VITALS: BP 133/65; PULSE 93; RESP 14; TEMP 36.5; O2SAT 92
--- NOTE | 2023-06-14 14:42 | PCM.DC.SUM ---
Providers Date of Admission: 06/10/23 Date of Discharge: 06/14/23 Primary Care Physician: Aminah Primary Care Phys Consultations 06/11/23 02:41 Consult: Onc/Wound/rn documentation Routine Comment: Reason for Consult:: Pressure ulcer on coccyx 06/12/23 15:29 Consult: Interventional Radiology Routine Consulting Provider: Colin Foreman Reason for Consult: liver biopsy EMERGENT Consult: No MD Notified: Yes Date Notified: 06/12/23 Time Notified: 15:29 Method of Notification: Verbal Reason For Visit: LEFT LOWER LOBE PNEUMONIA AND NON-STEMI TYPE II Diagnosis Discharge Diagnosis (1) Liver lesion: Status: Acute Code(s): K76.9 - Liver disease, unspecified Plan This is a 78-year-old female being admitted from outside [place] urgent care for cough and shortness of breath, severe left upper extremity swelling. Patient has history of left breast cancer status postlumpectomy then used to follow with [facility] oncologist but now wants to follow-up with [place] oncology. 1. Left lower lobe community-acquired pneumonia with a large left pleural effusion with hypoxia/elevated troponin ? Continue with antibiotics ? On 06/12 she had 900 mL left-sided thoracocentesis clear keira-colored. Fluid for cytology was positive for malignant cells. Respiratory panel was negative urinary antigens negative. ? Sputum culture if able ? Echo was done shows EF 60% and stage I diastolic dysfunction. RVSP 44 mmHg with trivial TR. 2. Severe left upper extremity swelling/history of breast cancer She states she had lumpectomy long time ago did not require any further treatment is in remission. But 2D echo and CT shows multiple mets. CT guided biopsy was done which shows metastatic adenocarcinoma. She wants to follow-up with [place] oncology therefore outpatient referral to Dr. Flower. Liver biopsy shows Metastatic adenocarcinoma consistent with breast primary, ductal carcinoma. ? Doppler of her upper and lower extremities were negative for DVT ? therapeutic Lovenox while continued ? CT of the chest was negative for PE ? Denies that any lymph nodes were surgically removed for her breast cancer 3. Elevated LFTs in the setting of metastatic disease to the liver ? CT of the chest when looking for PE demonstrated and homogeneous contrast uptake however it was reported that during the thoracentesis there is the potential for possible lesions ? As mentioned below. Follow-up in GI clinic Medications at Discharge Home Medications cholecalciferol (vitamin D3) 125 mcg (5,000 unit) tablet (Vitamin D3) 5,000 unit PO DAILY 06/10/23 albuterol sulfate 90 mcg/actuation aerosol inhaler 2 puff inhalation Q6H PRN shortness of breath or wheezing #8.5 grams 06/14/23 aspirin 81 mg chewable tablet 81 mg PO BREAKFAST 30 days #30 tabs 06/14/23 guaifenesin 1,200 mg tablet, extended release 12 hr (Mucus Relief ER) 1,200 mg PO BID 7 days #14 tabs 06/14/23 levofloxacin 500 mg tablet 500 mg PO DAILY #3 tabs 06/14/23 Weight / BMI Weight Weight: 213 lb 13.574 oz Body Mass Index (BMI) 32.5 ABG / Lab / Microbiology Data 06/13/23 05:40 06/13/23 05:40 Laboratory: Laboratory Results - last 24 hr 06/12/23 08:30: Fl Pathologist Comment Reviewed Microbiology: Microbiology 06/10/23 23:40 Mucosa - Nasopharyngeal Respiratory Panel (PCR) - Final 06/11/23 03:10 Urine, Clean Catch Legionella Antigen - Final 06/11/23 03:10 Urine, Clean Catch Streptococcus pneumoniae Antigen (M - Final 06/10/23 23:40 Mucosa - Nasopharyngeal Influenza Types A,B Direct FA (HMOERO) - Final D/C Instructions Discharge Diet: No restrictions Weight Bearing Status: Weight bearing as tolerated Call your doctor if you observe: Fever of 101 or Higher, Coldness, Increased Pain, Numbness or Tingling, Change in Color, Inability to urinate, Inability to have a bowel movement, Using more than 1 pad per hour, Shortness of breath, Dizziness, Fainting spells, Swelling in the ankles, Chest pain, Prolonged hiccupping, Increased palpitations (irregular heartbeat) and Calf discomfort When: IN 2 WEEKS Meaningful Use Info Meaningful Use Diagnoses (Choose all that apply): None applicable Discharge Plan Admission Admit Date/Time: 06/10/23 22:38 Primary Reason for Your Visit: Pleural effusion. Liver mass Attending Provider: Yash Pozo Primary Care Provider: Care Physician,No Primary Consulting Providers: Jc Sullivan; Colin Foreman; Ronald Cartagena Instructions Patient Instructions: ARIELA LIEBERMAN Biopsy Liver Dc, ARIELA RN Procedural Sedation Discharge Orders/Prescriptions Prescriptions: New guaifenesin [Mucus Relief ER] 1,200 mg Tablet Extended Release 12hr 1,200 mg PO BID 7 Days Qty: 14 0RF aspirin 81 mg Tablet,Chewable 81 mg PO BREAKFAST 30 Days Qty: 30 2RF levofloxacin 500 mg tablet 500 mg PO DAILY Qty: 3 0RF albuterol sulfate 90 mcg/actuation HFA aerosol inhaler 2 puff inhalation Q6H PRN (Reason: shortness of breath or wheezing) Qty: 8.5 0RF Continued cholecalciferol (vitamin D3) [Vitamin D3] 125 mcg (5,000 unit) tablet 5,000 unit PO DAILY Referrals / Follow Up: Tian Harding DO [Med Staff - Active Staff] - Within 1 Month (Malignant effusion) Alek Flower MD [Med Staff - Active Staff] - Within 2 Weeks (Liver mass with a liver biopsy showing metastatic adenocarcinoma consistent with breast primary ductal carcinoma) Care Physician,No Primary [Primary Care Provider] - Des Sosa DO [Med Staff - Active Staff] - Within 1 Month (for metastatic liver lesion) Disposition Disposition (needs filled in before D/C Order can be placed): Home Health Service Charges/Coding Visit Charges Inpatient E&M: 97986 Disch Hosp >30min
--- NOTE | 2023-06-14 16:03 | PHA.DC_ITS ---
Pharmacy [facility] has performed discharge medication reconciliation and counseling for this patient. 1. ASPIRIN 81MG PO DAILY 2. ALBUTEROL MDI 2PUFF Q6H PRN SOB 3. LEVOFLOXACIN 500MG PO DAILY X 3 DAYS 4. GUAIFENESIN 1200MG PO BID X 7 DAYS (PT REPORTED SHE CAN NOT TAKE THIS BECAUSE IT HAS SOY WHICH FEEDS HER BREAST CANCER, SAYS SHE CAN TAKE ROBITUSSIN) The patient's discharge medication list was reviewed for discrepancies and discrepancies were resolved. The patient was counseled on the following discharge medications and changes in medications for homegoing were reviewed. The Reason for Use, instructions for use, and potential side effects were reviewed for all new medications. The patient's questions regarding all of their medications were answered. The patient was able to verbally demonstrate an understanding of their discharge medications. Medications at Discharge Home Medications cholecalciferol (vitamin D3) 125 mcg (5,000 unit) tablet (Vitamin D3) 5,000 unit PO DAILY 06/10/23 albuterol sulfate 90 mcg/actuation aerosol inhaler 2 puff inhalation Q6H PRN shortness of breath or wheezing #8.5 grams 06/14/23 aspirin 81 mg chewable tablet 81 mg PO BREAKFAST 30 days #30 tabs 06/14/23 guaifenesin 1,200 mg tablet, extended release 12 hr (Mucus Relief ER) 1,200 mg PO BID 7 days #14 tabs 06/14/23 levofloxacin 500 mg tablet 500 mg PO DAILY #3 tabs 06/14/23
--- NOTE | 2023-06-14 16:25 | CASEMGMT ---
LUISANA JENSEN NOTE: Pt being discharged. RN MIKEY to room. Pt resting in bed. Family @ bedside. Pt states she thinks they have decided on her going to PCP @ [facility] and states they will f/u with PCP's office re: getting an appt. She and family aware if she still wants [facility] to discuss this w/PCP once she gets established. They voice understanding. Pt and family deny having any further discharge planning needs/concerns. Analisa FUENTES RN CM
== END 2023-06-14 17:23 | disposition home or self-care (01) | DRG 435 ==
PROVIDERS: Family Medicine; Internal Medicine; Admitting Provider Internal Medicine; Visit Provider Internal Medicine
DX: C78.7 Secondary malignant neoplasm of liver and intrahepatic bile duct (principal); J18.9 Pneumonia, unspecified organism; I24.89 Other forms of acute ischemic heart disease; J91.0 Malignant pleural effusion; M79.89 Other specified soft tissue disorders; E66.9 Obesity, unspecified; R09.02 Hypoxemia; Z68.32 Body mass index [BMI] 32.0-32.9, adult; Z90.49 Acquired absence of other specified parts of digestive tract; Z91.198 Patient's noncompliance with other medical treatment and regimen for other reason; Z85.3 Personal history of malignant neoplasm of breast; Z85.038 Personal history of other malignant neoplasm of large intestine
CPT/HCPCS: 32555; 36415; 71046; 71275; 74178; 77012; 80053; 80061; 82945; 83615; 83880; 84157; 84443; 84484; 85025; 85379; 85610; 87449; 87633; 87804; 88108; 88161; 88172; 88305; 88307; 88313; 88341; 88342; 89050; 93005; 93306; 93970; 94668; 97110; 97162; 97166; 97530; 97535; 97802; 99156; J7040; J7050; Q9957; Q9967; A4216; C8929; J1940